=== PATIENT | male | born 1950 | race Caucasian/White ===

== ENCOUNTER → 2017-11-27 | Outpatient (CLI) | payer MEDICARE, BC ==
[~2017-11-27] MED LIST: ASPIRIN; ASPIRIN EC81 MG PO; ATORVASTATIN CA20 MG PO; BRILINTA90 MG PO; BUPROPION; BUPROPION HCL100 M1 PO; BUTALBITAL; BUTALBITAL-ASA1 EACH PO; BYSTOLIC; BYSTOLIC10 MG PO; BYSTOLIC5 MG PO; CARISOPRODOL; CARISOPRODOL350 MG PO; HYDROCHLOROTH12.5 M1 PO; HYDROCHLOROTHIAZIDE; KETOPROFEN; KETOPROFEN50 MG PO; LORAZEPAM; LORAZEPAM1 MG PO; MAXALT MLT; MAXALT MLT10 MG SL; NITROLINGUAL; NITROLINGUAL4.9 GM SL; OMEPRAZOLE40 MG PO; PANTOPRAZOLE; PLAVIX; POT CITRATE; POTASSIUM CITR10 MEQ PO; RANEXA500 MG PO; TAMSULOSIN; TAMSULOSIN HCL0.4 MG PO; TEMAZEPAM; TRILIPIX; TRILIPIX135 MG PO; VYTORIN; WELCHOL; WELCHOL625 MG PO; ZETIA10 MG PO; ZYRTEC10 M3 PO
--- NOTE | 2017-11-27 10:38 | Diagnostic Imaging Report ---
PROCEDURE:CHEST 2 VIEWS TECHNIQUE:PA and lateral chest INDICATION:Malignant neoplasm of the kidney COMPARISON:Patients [facility], , CHEST 2 VIEWS, 07/23/2017, 14:30. FINDINGS: The lungs are clear and slightly inflated. Normal heart size, mediastinal contour, and pulmonary vasculature. Intact skeleton. CONCLUSION: Normal study. Dictated by: Aakash Randall M.D. on 11/27/2017 at 10:39 Electronically approved by: Aakash Randall M.D. on 11/27/2017 at 10:39
--- NOTE | 2017-11-27 11:04 | Diagnostic Imaging Report ---
PROCEDURE:US RETROPERITONEAL ( KIDNEY ). COMPARISON:Patients [facility], , US RETROPERITONEAL ( KIDNEY )., 01/24/2017, 14:22. Patients [facility], , US RETROPERITONEAL ( KIDNEY )., 07/23/2017, 14:57. INDICATIONS:Malignant Neoplasm Of Unspecified Kidney TECHNIQUE: Grayscale and color Doppler ultrasound of kidneys FINDINGS: Right: 11.8 x 6.6 x 6.2 cm. Cortical thickness 2.2 cm Left: 12.5 x 7.1 x 5.9 cm. Cortical thickness 1.8 cm Postoperative sequela of right partial nephrectomy. Stable complex parapelvic cyst measuring 1.5 x 1.3 x 1.3 cm. Normal echogenicity. 0.7 x 0.6 x 0.9 cm left anechoic exophytic cyst, new relative to July 2017. Survey views of the urinary bladder are normal. Patent ureters with normal ureteral jets. Prostate volume: 25 mL (3.6 x 3 x 4.5 cm). CONCLUSION: 1. Stable postoperative sequela of right partial nephrectomy. 2. Stable complex right parapelvic cyst. 3. Interval development of a small simple-appearing exophytic left renal cyst. Dictated by: Aakash Randall M.D. on 11/27/2017 at 11:05 Electronically approved by: Aakash Randall M.D. on 11/27/2017 at 11:05
== END ==
LOC: US 08:58
PROVIDERS: ATTEND Urology
DX: C64.9 Malignant neoplasm of unspecified kidney, except renal pelvis (principal)
CPT/HCPCS: 71046; 76770

== ENCOUNTER → 2018-07-03 | Outpatient (CLI) | payer MEDICARE, BC ==
--- NOTE | 2018-07-03 12:53 | Diagnostic Imaging Report ---
EXAMINATION: PA and lateral views of the chest. COMPARISON: 11/27/2017 CLINICAL HISTORY: Malignant neoplasm of kidney DISCUSSION: Lungs are well-inflated. No focal airspace consolidation, pleural effusion, or pneumothorax. No suspicious mass lesion. Stable cardiomediastinal contour with tortuosity of the thoracic aorta. No acute osseous abnormality. Mild degenerative disc changes of the thoracic spine. Chronic mild anterior compression deformity of T12, unchanged. Multiple surgical clips project over the vertebral column on the lateral radiograph. IMPRESSION: No acute cardiopulmonary abnormalities. Signed by: Dr. Edgar Garcia M.D. on 07/03/2018 12:50 PM
--- NOTE | 2018-07-03 15:02 | Diagnostic Imaging Report ---
RENAL ULTRASOUND TECHNIQUE: Ultrasound evaluation of the KIDNEYS. Color Doppler evaluation was utilized to supplement the evaluation. HISTORY: Malignant neoplasm of kidney COMPARISON: Renal ultrasound November 27, 2017 DISCUSSION: RIGHT KIDNEY: The right kidney measures 11 cm in length. The cortex measures 2 cm in thickness. Parenchyma is within normal limits. No hydronephrosis or solid mass lesions. LEFT KIDNEY: The left kidney measures 12 cm in length. The cortex measures 2 cm in thickness. Parenchyma is within normal limits. No hydronephrosis or solid mass lesions. BLADDER: Unremarkable IMPRESSION: No sonographic abnormality. Signed by: Dr. Kadne Samaniego D.O., M.M.M. on 07/03/2018 2:58 PM
== END ==
LOC: US 11:41
PROVIDERS: ATTEND Urology
DX: C64.1 Malignant neoplasm of right kidney, except renal pelvis (principal)
CPT/HCPCS: 71046; 76770

== ENCOUNTER → 2018-12-02 | Outpatient (CLI) | payer MEDICARE, BC ==
--- NOTE | 2018-12-02 13:20 | Diagnostic Imaging Report ---
EXAMINATION: CHEST 2 VIEWS INDICATION: Malignant renal neoplasm. COMPARISON: Chest radiograph 07/03/2018. FINDINGS: TUBES and LINES: None. LUNGS: Lungs are well inflated. There is no evidence of pneumonia or pulmonary edema. PLEURA: No pleural effusion or pneumothorax. HEART AND MEDIASTINUM: The cardiomediastinal silhouette is unremarkable. BONES AND SOFT TISSUES: There is a mild wedge deformity of a lower thoracic vertebral body, similar in appearance to prior radiograph on 07/03/2018. UPPER ABDOMEN: No free air under the diaphragm. There are surgical clips in the upper posterior abdomen. IMPRESSION: No acute radiographic abnormality. Signed by: Dr. Martha Benito MD on 12/02/2018 1:16 PM
--- NOTE | 2018-12-02 13:25 | Diagnostic Imaging Report ---
RENAL ULTRASOUND TECHNIQUE: Ultrasound evaluation of the KIDNEYS. Color Doppler evaluation was utilized to supplement the evaluation. HISTORY: Malignant neoplasm of kidney COMPARISON: Renal ultrasound 07/03/2018. DISCUSSION: RIGHT KIDNEY: The right kidney measures 11.3 cm in length. The cortex measures 1.3 cm in thickness. Parenchyma is within normal limits. No hydronephrosis or solid mass lesions. LEFT KIDNEY: The left kidney measures 13.8 cm in length. The cortex measures 1.6 cm in thickness. Parenchyma is within normal limits. No hydronephrosis or solid mass lesions. There is a 1.2 cm simple appearing lower pole anechoic cyst without vascular flow, previously measuring up to 0.9 cm. BLADDER: Unremarkable in appearance. Bilateral ureteral jets are seen. IMPRESSION: No sonographic evidence of solid renal mass. Slight interval increase in size of simple appearing 1.2 cm left lower pole renal cyst, previously 0.9 cm. Signed by: Dr. Martha Benito MD on 12/02/2018 1:22 PM
--- NOTE | 2018-12-02 14:35 | Diagnostic Imaging Report ---
Exam: KUB-2 views Clinical History: Renal malignancy. Comparison: None. Findings: There is a nonobstructive bowel gas pattern. No evidence of urinary calcifications. There are calcified phleboliths in the pelvis. No acute osseous abnormality. There are surgical clips in the right upper abdomen. Impression: No acute radiographic abnormality. Signed by: Dr. Martha Benito MD on 12/02/2018 2:32 PM
== END ==
LOC: US 11:25
PROVIDERS: ATTEND Urology
DX: C64.1 Malignant neoplasm of right kidney, except renal pelvis (principal); N20.0 Calculus of kidney; N28.1 Cyst of kidney, acquired
CPT/HCPCS: 71046; 74018; 76770

== ENCOUNTER → 2019-06-12 | Outpatient (CLI) | payer MEDICARE, BC ==
--- NOTE | 2019-06-12 09:09 | Diagnostic Imaging Report ---
Chest, 2 views, 06/12/2019. History: Malignant neoplasm of the kidney. Comparison: 12/02/2018. Findings: The cardiomediastinal silhouette and pulmonary vasculature are within normal limits. There is minimal left apical pleural thickening. The lungs are clear without evidence of consolidation or pleural effusion. Degenerative changes are present within the thoracic spine. There are no acute osseous or soft tissue abnormalities. Impression: No acute cardiopulmonary abnormality. Signed by: Alexis Zuniga on 06/12/2019 9:06 AM
--- NOTE | 2019-06-12 09:11 | Diagnostic Imaging Report ---
Abdomen, 1 view. History: History of renal cancer. Comparison: 12/02/2018. Findings: Multiple surgical clips are present in the right abdomen consistent with prior right nephrectomy. Air is scattered throughout nondilated small and large bowel. Calcified fluids are present within the pelvis bilaterally. Degenerative changes are noted throughout the lumbar spine. IMPRESSION: Non-specific bowel gas pattern. Signed by: Alexis Zuniga on 06/12/2019 9:07 AM
--- NOTE | 2019-06-12 09:40 | Diagnostic Imaging Report ---
Renal ultrasound, 06/12/2019. History: Renal calculus. Comparison: 12/02/2018. Discussion: Transverse and longitudinal images of the kidneys were obtained demonstrating normal renal sizes and echogenicities. There is no evidence of hydronephrosis, mass, or renal calculus. An oval anechoic structure is present in the lower pole of the left kidney measuring 1.2 x 1.3 x 1.2 cm. The right kidney measures 11.7 cm and the left kidney measures 12.7 cm in length. Renal cortex measures 2.5 and 1.8 cm respectively. The urinary bladder is unremarkable. Bilateral ureteral jets are identified. Bladder volume measures 308 mL. There is no evidence of free fluid. IMPRESSION: Stable left renal cyst. Otherwise unremarkable renal ultrasound. Signed by: Alexis Zuniga on 06/12/2019 9:36 AM
== END ==
LOC: US 08:28
PROVIDERS: ATTEND Urology
DX: C64.1 Malignant neoplasm of right kidney, except renal pelvis (principal); N20.0 Calculus of kidney
CPT/HCPCS: 71046; 74018; 76770

== ENCOUNTER 2019-10-31 09:57 | Outpatient (RCR) | payer MEDICARE, BC | END 2019-11-01 | LOC: PT 09:57 | PROVIDERS: ATTEND Specialist | DX: M47.896 Other spondylosis, lumbar region (principal) | CPT/HCPCS: 97139 ==

== ENCOUNTER 2020-03-31 21:56 | Emergency (ER) | payer MEDICARE, BC ==
[~2020-03-31] VITALS: Ht 182.9 cm; Wt 75.7 kg
[2020-03-31 22:26] LABS: BASOPHILS % 0.6 % (0.0-1.0); EOSINOPHILS # (AUTO) 0.1 (0.0-0.4); EOSINOPHILS % 1.5 % (0.0-6.0); HEMATOCRIT 36.6 % (38.2-49.6); HEMOGLOBIN 12.9 g/dL (14.0-18.0); LYMPHOCYTES # (AUTO) 2.5 (1.0-3.2); LYMPHOCYTES % 38.2 % (18.0-39.1); MEAN CORPUSCULAR HEMOGLOBIN 33.3 pg (28-32); MEAN CORPUSCULAR HGB CONC 35.2 g/dL (31-35); MEAN CORPUSCULAR VOLUME 94.6 fL (81-99); MONOCYTES # (AUTO) 0.8 (0.2-0.8); NEUTROPHILS # (AUTO) 3.1 (2.1-6.9); NEUTROPHILS % 47.2 % (38.7-80.0); PLATELET COUNT 188 x10e3/uL (140-360); RED BLOOD COUNT 3.87 x10e6/uL (4.3-5.7); RED CELL DISTRIBUTION WIDTH 12.5 % (11.7-14.4)
[2020-03-31 22:36] LABS: BILIRUBIN,URINE NEGATIVE (NEGATIVE); CLARITY,URINE CLEAR (CLEAR); COLOR,URINE YELLOW (YELLOW); KETONES,URINE NEGATIVE (NEGATIVE); LEUKOCYTE ESTERASE ,URINE NEGATIVE (NEGATIVE); NITRITE,URINE NEGATIVE (NEGATIVE); PROTEIN,URINE DIPSTICK NEGATIVE (NEGATIVE); URINE UROBILINOGEN 0.2 mg/dL (0.2 - 1)
[2020-03-31 22:39] LABS: INR 0.98; PROTHROMBIN TIME 13.5 seconds (11.9-14.5)
--- NOTE | 2020-03-31 22:39 | Emergency Department Note ---
History of Present Illnes History of Present Illness Chief Complaint: General Medicine Complaints History of Present Illness This is a 69 year old male presents to ED with report of near syncope episode at home at approx 2030; pt reports struck head on floor, denies LOC, no obvious trauma noted; pt reports pain to right side of neck and head; hand balloon sander equal and strong, perrla, speech clear, smile symmetrical, gait steady .He states before he fell he became dizzy, denies sob, chest pain Historian: Patient, Family Member Arrival Mode: Car Onset (how long ago): hour(s) (2) Location: RIGHT HEAD Quality: NEAR SYNCOPE, HIT HEAD ON FLOOR, DENIES LOC Radiation: Reports non-radiation Severity: moderate Onset quality: sudden Duration (how long): hour(s) (2) Timing of current episode: unable to specify Progression: resolved Chronicity: new Context: Reports trauma/injury ( ABOVE); Denies recent illness, Denies recent surgery Relieving factors: none Exacerbating factors: none Associated symptoms: Reports denies other symptoms Treatments prior to arrival: none Past Medical/Family History Physician Review I have reviewed the patient's past medical and family history. Any updates have been documented here. Past Medical History Recent Fever: No Clinical Suspicion of Infectio: No New/Unexplained Change in Ment: No Past Medical History: Hypertension, Cancer, Migraines, Hyperlipedemia, Chronic Back Pain Other Medical History: HIGH CHOLESTEROL DIVERTICULITIS CHRONIC BACK PAIN KIDNEY CANCER IN REMISSION Past Surgical History: PCI Other Surgery: HEART CATH STENT X2 RIGHT KIDNEY PARTIALLY REMOVED DUE TO CANCER Social History Smoking Cessation: Current every day smoker Counseling Performed: Yes Alcohol Use: None Any Illegal Drug Use: Yes (PT REPORTS MARIJUANA ) Physically hurt or threatened: No Other Last Tetanus: ABOUT 3-4 YEARS AGO Any Pre-Existing Lines (PICC,: No Review of Systems Review of Systems Constitutional: Reports no symptoms EENTM: Reports as per HPI Cardiovascular: Reports no symptoms Respiratory: Reports no symptoms Gastrointestinal: Reports no symptoms Genitourinary: Reports no symptoms Musculoskeletal: Reports no symptoms Integumentary: Reports no symptoms Neurological: Reports as per HPI Psychological: Reports no symptoms Endocrine: Reports no symptoms Hematological/Lymphatic: Reports no symptoms Physical Exam Related Data Allergies: Coded Allergies: No Known Allergies (Unverified , 11/25/13) Triage Vital Signs Vital Signs Date Time Temp Pulse Resp B/P (MAP) Pulse Ox O2 Delivery O2 Flow Rate FiO2 03/31/20 22:05 98.6 52 17 152/75 99 Room Air Vital signs reviewed: Yes Physical Exam CONSTITUTIONAL Constitutional: Present well-developed, Present well-nourished; Absent distressed HENT HENT: Present normocephalic, Present oropharynx clear/moist, Present nose normal, Present other (small contusion right temporal area) HENT L/R: Present left ext ear normal, Present right ext ear normal EYES Eyes: Reports PERRL, Reports conjunctivae normal NECK Neck: Present ROM normal PULMONARY Pulmonary: Present effort normal, Present breath sounds normal CARDIOVASCULAR Cardiovascular: Present regular rhythm, Present heart sounds normal, Present capillary refill normal, Present bradycardia (53) GASTROINTESTINAL Abdominal: Present soft, Present nontender, Present bowel sounds normal GENITOURINARY Genitourinary: Present exam deferred SKIN Skin: Present warm, Present dry MUSCULOSKELETAL Musculoskeletal: Present ROM normal NEUROLOGICAL Neurological: Present alert, Present oriented x 3, Present no gross motor or sensory deficits PSYCHOLOGICAL Psychological: Present mood/affect normal, Present judgement normal Results Laboratory Result Diagram: 03/31/20 2215 Laboratory Laboratory Tests Test 03/31/20 22:15 03/31/20 22:00 White Blood Count 6.49 x10e3/uL (4.8-10.8) Red Blood Count 3.87 x10e6/uL (4.3-5.7) Hemoglobin 12.9 g/dL (14.0-18.0) Hematocrit 36.6 % (38.2-49.6) Mean Corpuscular Volume 94.6 fL (81-99) Mean Corpuscular Hemoglobin 33.3 pg (28-32) Mean Corpuscular Hemoglobin Concent 35.2 g/dL (31-35) Red Cell Distribution Width 12.5 % (11.7-14.4) Platelet Count 188 x10e3/uL (140-360) Neutrophils (%) (Auto) 47.2 % (38.7-80.0) Lymphocytes (%) (Auto) 38.2 % (18.0-39.1) Monocytes (%) (Auto) 12.0 % (4.4-11.3) Eosinophils (%) (Auto) 1.5 % (0.0-6.0) Basophils (%) (Auto) 0.6 % (0.0-1.0) Neutrophils # (Auto) 3.1 (2.1-6.9) Lymphocytes # (Auto) 2.5 (1.0-3.2) Monocytes # (Auto) 0.8 (0.2-0.8) Eosinophils # (Auto) 0.1 (0.0-0.4) Basophils # (Auto) 0.0 (0.0-0.1) Absolute Immature Granulocyte (auto 0.03 x10e3/uL (0-0.1) Prothrombin Time 13.5 seconds (11.9-14.5) Prothromb Time International Ratio 0.98 Activated Partial Thromboplast Time 28.8 seconds (23.8-35.5) Sodium Level 138 mmol/L (136-145) Potassium Level 3.6 mmol/L (3.5-5.1) Chloride Level 102 mmol/L (98-107) Carbon Dioxide Level 26 mmol/L (22-29) Anion Gap 13.6 mmol/L (8-16) Blood Urea Nitrogen 15 mg/dL (7-26) Creatinine 0.91 mg/dL (0.72-1.25) Estimat Glomerular Filtration Rate > 60 ML/MIN (60-) BUN/Creatinine Ratio 16 (6-25) Glucose Level 96 mg/dL (74-118) Calcium Level 9.0 mg/dL (8.4-10.2) Total Bilirubin 0.4 mg/dL (0.2-1.2) Aspartate Amino Transf (AST/SGOT) 38 IU/L (5-34) Alanine Aminotransferase (ALT/SGPT) 57 IU/L (0-55) Alkaline Phosphatase 67 IU/L (40-150) Creatine Kinase 226 IU/L (30-200) Creatine Kinase MB 3.70 ng/mL (0-5.0) Troponin I 0.008 ng/mL (0-0.300) Total Protein 7.1 g/dL (6.5-8.1) Albumin 3.9 g/dL (3.5-5.0) Globulin 3.2 g/dL (2.3-3.5) Albumin/Globulin Ratio 1.2 (0.8-2.0) Urine Color Yellow (YELLOW) Urine Clarity Clear (CLEAR) Urine pH 7 (5 - 7) Urine Specific [place] 1.015 (1.010-1.025) Urine Protein Negative (NEGATIVE) Urine Glucose (UA) Negative (NEGATIVE) Urine Ketones Negative (NEGATIVE) Urine Blood Negative (NEGATIVE) Urine Nitrite Negative (NEGATIVE) Urine Bilirubin Negative (NEGATIVE) Urine Urobilinogen 0.2 mg/dL (0.2 - 1) Urine Leukocyte Esterase Negative (NEGATIVE) Urine RBC None /HPF (0-5) Urine WBC 0-5 /HPF (0-5) Urine Epithelial Cells Rare /LPF (NONE) Urine Bacteria Few /HPF (NONE) Laboratory Tests Test 03/31/20 22:15 03/31/20 22:00 White Blood Count 6.49 x10e3/uL (4.8-10.8) Red Blood Count 3.87 x10e6/uL (4.3-5.7) Hemoglobin 12.9 g/dL (14.0-18.0) Hematocrit 36.6 % (38.2-49.6) Mean Corpuscular Volume 94.6 fL (81-99) Mean Corpuscular Hemoglobin 33.3 pg (28-32) Mean Corpuscular Hemoglobin Concent 35.2 g/dL (31-35) Red Cell Distribution Width 12.5 % (11.7-14.4) Platelet Count 188 x10e3/uL (140-360) Neutrophils (%) (Auto) 47.2 % (38.7-80.0) Lymphocytes (%) (Auto) 38.2 % (18.0-39.1) Monocytes (%) (Auto) 12.0 % (4.4-11.3) Eosinophils (%) (Auto) 1.5 % (0.0-6.0) Basophils (%) (Auto) 0.6 % (0.0-1.0) Neutrophils # (Auto) 3.1 (2.1-6.9) Lymphocytes # (Auto) 2.5 (1.0-3.2) Monocytes # (Auto) 0.8 (0.2-0.8) Eosinophils # (Auto) 0.1 (0.0-0.4) Basophils # (Auto) 0.0 (0.0-0.1) Absolute Immature Granulocyte (auto 0.03 x10e3/uL (0-0.1) Lab results reviewed: Yes Imaging Imaging results reviewed: Yes Impressions Procedure: [id number] DX/CHEST SINGLE (PORTABLE) Exam Date: 03/31/20 Exam Time: 2305 REPORT STATUS: Signed EXAMINATION: CHEST SINGLE (PORTABLE) INDICATION: Near syncope COMPARISON: Chest x-ray 06/12/2019 FINDINGS: TUBES and LINES: None. LUNGS: Normal lung volumes. Lungs are clear. No consolidations. PLEURA: No pleural effusion or pneumothorax. HEART AND MEDIASTINUM: Aortic calcifications. Mild cardiomegaly with left coronary stent. BONES AND SOFT TISSUES: No acute osseous lesion. Soft tissues are unremarkable. Degenerative changes. UPPER ABDOMEN: No free air under the diaphragm. IMPRESSION: Mild cardiomegaly with left coronary stent. Signed by: Shaw Ruffin DO on 03/31/2020 11:32 PM Dictated By: SHAW RUFFIN DO 31 Transcribed By: AYB on 03/31/202331 COPY TO: MARTI CHENG MD~ Procedure: [id number] CT/CT CERVICAL SPINE WO Exam Date: 03/31/20 Exam Time: 2255 REPORT STATUS: Signed EXAMINATION: CT of the cervical spine HISTORY: Near syncope, trauma, hit the head, possible stroke COMPARISON: None available TECHNIQUE: Multidetector helical axial images were obtained without contrast from the foramen magnum to T1. The images were reconstructed using bone and soft tissue algorithms and were viewed in axial, sagittal and coronal planes. Dose modulation, iterative reconstruction, and/or weight based adjustment of the mA/kV was utilized to reduce the radiation dose to as low as reasonably achievable. FINDINGS: Alignment: Normal alignment and lordosis. Subtle left-sided curvature. Soft tissues: Normal Vertebrae: Normal height and density. No acute fracture, infection or neoplasm Degenerative changes: C1-C2: Normal C2-C3: Normal C3-C4: Asymmetric right disc osteophyte complex formation, uncovertebral and facet arthrosis. Severe right and mild left foraminal stenoses. C4-C5: Facet arthrosis mainly on the right, no stenoses. C5-C6: Asymmetric right disc osteophyte complex formation and uncovertebral and facet arthrosis. Moderate right foraminal narrowing. C6-C7: Mild facet arthrosis without stenoses. C7-T1: Normal IMPRESSION: 1. No acute cervical spine postraumatic abnormalities. 2. Mild chronic degenerative changes are available. Note: Acute postraumatic spinal cord, vascular or ligamentous injuries cannot adequately be assessed by CT. Signed by: Dr. Alonso Mckeon M.D. on 03/31/2020 11:19 PM Dictated By: ALONSO MCKEON MD 18 Transcribed By: ABY on 03/31/202318 COPY TO: MARTI CHENG MD~ EXAMINATION: Head CT HISTORY: Near syncope, trauma, hit the head, possible stroke COMPARISON: None available TECHNIQUE: Helical axial images of the head were obtained. Reformatted coronal and sagittal images from the axial data. Dose modulation, iterative reconstruction, and/or weight based adjustment of the mA/kV was utilized to reduce the radiation dose to as low as reasonably achievable. Image quality: Motion/streaking artifact limits the evaluation of the skull base and posterior cranial fossa. FINDINGS: Parenchyma: 1. Focal hypodensity in the right anterior/superior insula involving the great and white matter is worrisome for acute ischemic insult, no definite associated hemorrhagic component or significant mass effect. 2. A few scattered pulmonary densities, most likely nonspecific chronic microvascular ischemic changes. 3. No mass or hemorrhage. No CT evidence of acute territorial vascular insult. Extra-axial spaces:No abnormal density. No extra-axial fluid collections Brain volume: Normal for age. Ventricles: No hydrocephalus or displacement. Arteries: No density suggestive of thrombus. Dural sinuses: No abnormal density. Foramen magnum: No mass, Chiari malformation, or basilar invagination. Sella: No obvious mass. Paranasal/mastoid sinuses: Imaged portions unremarkable. Skull/Scalp: No lytic or blastic lesions. No fractures. IMPRESSION: Small hypodensity in the right anterior/superior insular likely corresponds to acute ischemic infarct. Signed by: Dr. Alonso Mckeon M.D. on 03/31/2020 11:30 PM Dictated By: ALONSO MCKEON MD 29 Transcribed By: ABY on 03/31/202329 COPY TO: MARTI CHENG MD~ Procedures 12 Lead ECG Interpretation ECG Interpretation : ECG: ECG 1 [employer] Manager: Interpreted by ED physician Date: Mar 31, 2020 Time: 22:13 Rhythm: sinus bradycardia Rate: bradycardia BPM: 53 QRS axis: normal ST segments normal: Yes T waves normal: Yes Q waves: V1 Clinical Impression: abnormal ECG Clinical Decision Tools NIH Stroke Scale Interval: baselline NIH Stroke Score: NIH Stroke Score Response (Comments) Value Level of Consciousness Alert, Keenly Responsive 0 Level of Consciousness Questions Answers Both Correctly 0 Level of Consciousness Commands Performs Both Tasks 0 Lateral Gaze Paresis Normal 0 Visual Field Loss No Visual Loss 0 Facial Palsy Normal Symmetrical Move 0 Motor Left Arm No Drift, Arm Stays 45/90 0 Motor Right Arm No Drift, Arm Stays 45/90 0 Motor Left Leg No Drift, Arm Stays 45/90 0 Motor Right Leg No Drift, Arm Stays 45/90 0 Limb Ataxia Absent 0 Sensory Loss Normal 0 Language Aphasia No Aphasia, Normal 0 Dysarthria Normal 0 Extinction and Inattention No Abnormality 0 Total 0 Assessment & Plan Medical Decision Making MDM pt with near syncope episode resulting in hitting his head on floor cbc, cmp, ekg, cxr, ct brain, ct c spine , cardiac enzymes, ua ordered to eval for myocardial infarction, arrythmia, intracranial injury/abnormality, fractures, electrolyte abnormality, intrathoracic abnormality pt will require transfer to another hospital as no neurology net application support specialist at this facility. i spoke with dr serrano( neurology) at [facility], he will see pt but wants pt admitted to hospitalist, awaiting to talk to hospitalist at this time. 4104/01/[address] jones hospitalist at [facility], she accepts pt for transfer Reassessment Reassessment time: 23:40 Reassessment nih stroke scale score still 0 at this time. Assessment & Plan Final Impression: (1) Ischemic stroke (2) Near syncope (3) Head contusion Depart Disposition: TRANS TO OTHER [facility] Last Vital Signs Date Time Temp Pulse Resp B/P (MAP) Pulse Ox O2 Delivery O2 Flow Rate FiO2 03/31/20 22:05 98.6 52 17 152/75 99 Room Air Home Meds Reported Medications Nebivolol Hcl (BYSTOLIC) 10 Mg Tablet, 5 MG PO DAILY, TAB 05/05/16 Cetirizine Hcl (ZYRTEC) 10 Mg Capsule, 10 MG PO DAILY 11/25/13 Ezetimibe (ZETIA) 10 Mg Tablet, 10 MG PO DAILY 11/25/13 Ticagrelor (BRILINTA) 90 Mg Tablet, 90 MG PO BID 11/25/13 Atorvastatin Calcium (ATORVASTATIN CALCIUM) 20 Mg Tablet, 20 MG PO DAILY 11/25/13 Ranolazine (RANEXA) 500 Mg Tabsr, 1000 MG PO BID 11/25/13 Butalbital/Aspirin/Caffeine (DFRCLLUDRM-RBA-KFUMCRFQ CAP) 1 Each Capsule, 30 MG PO TID PRN HEADACHE PRN for HEADACHE 11/25/13 Rizatriptan Benzoate (MAXALT OIL WELL ENGINEER) 10 Mg Tab.rapdis, 10 MG SL PRN DAILY MIGRAINE 11/25/13 Fenofibric Acid (Choline) (TRILIPIX) 135 Mg Capsule.dr, 135 MG PO DAILY 11/25/13 Carisoprodol (CARISOPRODOL) 350 Mg Tablet, 350 MG PO TID PRN 11/25/13 Tamsulosin Hcl (TAMSULOSIN HCL) 0.4 Mg Cap.er.24h, 0.4 MG PO DAILY 30 minutes after meal 11/25/13 Colesevelam Hcl (WELCHOL) 625 Mg Tablet, 625 MG PO BID 3 tabs 11/25/13 Nitroglycerin (NITROLINGUAL) 4.9 Gm [place], 1 SPRAY SL PRN X3 11/25/13 Hydrochlorothiazide (HYDROCHLOROTHIAZIDE) 12.5 Mg Capsule, 12.5 MG PO DAILY 11/25/13 Omeprazole (OMEPRAZOLE) 40 Mg Capsule.dr, 40 MG PO DAILY PRN 11/25/13 Potassium Citrate (POTASSIUM CITRATE) 10 Meq Tablet.er, 10 MEQ PO TID 11/25/13 Aspirin (ASPIRIN EC) 81 Mg Tablet.dr, 81 MG PO DAILY 11/25/13 Lorazepam (LORAZEPAM) 1 Mg Tablet, 1-2 MG PO BID PRN for ANXIETY 11/25/13 Bupropion Hcl (BUPROPION HCL SR) 100 Mg Tablet.er, 300 MG PO DAILY 11/25/13 MARTI CHENG MD Mar 31, 2020 22:39
[2020-03-31 22:40] LABS: PARTIAL THROMBOPLASTIN TIME 28.8 seconds (23.8-35.5)
[2020-03-31 22:43] LABS: BACTERIA,URINE FEW /HPF; EPITHELIAL CELLS,URINE RARE /LPF; WBC,URINE (MAN) 0-5 /HPF (0-5)
[2020-03-31 22:50] LABS: ALANINE AMINOTRANSFERASE 57 IU/L (0-55); ALBUMIN 3.9 g/dL (3.5-5.0); ALBUMIN/GLOBULIN RATIO 1.2 (0.8-2.0); ALKALINE PHOSPHATASE 67 IU/L (40-150); ANION GAP 13.6 mmol/L (8-16); BLOOD UREA NITROGEN 15 mg/dL (7-26); BUN/CREATININE RATIO 16 (6-25); CARBON DIOXIDE 26 mmol/L (22-29); CHLORIDE 102 mmol/L (98-107); CREATINE KINASE 226 IU/L (30-200); CREATININE, SERUM 0.91 mg/dL (0.72-1.25); EST GLOMERULAR FILTRATION RATE > 60 ML/MIN (60-); GLUCOSE 96 mg/dL (74-118); POTASSIUM 3.6 mmol/L (3.5-5.1); SODIUM 138 mmol/L (136-145)
--- NOTE | 2020-03-31 23:23 | Diagnostic Imaging Report ---
EXAMINATION: CT of the cervical spine HISTORY: Near syncope, trauma, hit the head, possible stroke COMPARISON: None available TECHNIQUE: Multidetector helical axial images were obtained without contrast from the foramen magnum to T1. The images were reconstructed using bone and soft tissue algorithms and were viewed in axial, sagittal and coronal planes. Dose modulation, iterative reconstruction, and/or weight based adjustment of the mA/kV was utilized to reduce the radiation dose to as low as reasonably achievable. FINDINGS: Alignment: Normal alignment and lordosis. Subtle left-sided curvature. Soft tissues: Normal Vertebrae: Normal height and density. No acute fracture, infection or neoplasm Degenerative changes: C1-C2: Normal C2-C3: Normal C3-C4: Asymmetric right disc osteophyte complex formation, uncovertebral and facet arthrosis. Severe right and mild left foraminal stenoses. C4-C5: Facet arthrosis mainly on the right, no stenoses. C5-C6: Asymmetric right disc osteophyte complex formation and uncovertebral and facet arthrosis. Moderate right foraminal narrowing. C6-C7: Mild facet arthrosis without stenoses. C7-T1: Normal IMPRESSION: 1. No acute cervical spine postraumatic abnormalities. 2. Mild chronic degenerative changes are available. Note: Acute postraumatic spinal cord, vascular or ligamentous injuries cannot adequately be assessed by CT. Signed by: Dr. Samira Mckeon M.D. on 03/31/2020 11:19 PM
--- NOTE | 2020-03-31 23:34 | Diagnostic Imaging Report ---
EXAMINATION: Head CT HISTORY: Near syncope, trauma, hit the head, possible stroke COMPARISON: None available TECHNIQUE: Helical axial images of the head were obtained. Reformatted coronal and sagittal images from the axial data. Dose modulation, iterative reconstruction, and/or weight based adjustment of the mA/kV was utilized to reduce the radiation dose to as low as reasonably achievable. Image quality: Motion/streaking artifact limits the evaluation of the skull base and posterior cranial fossa. FINDINGS: Parenchyma: 1. Focal hypodensity in the right anterior/superior insula involving the great and white matter is worrisome for acute ischemic insult, no definite associated hemorrhagic component or significant mass effect. 2. A few scattered pulmonary densities, most likely nonspecific chronic microvascular ischemic changes. 3. No mass or hemorrhage. No CT evidence of acute territorial vascular insult. Extra-axial spaces:No abnormal density. No extra-axial fluid collections Brain volume: Normal for age. Ventricles: No hydrocephalus or displacement. Arteries: No density suggestive of thrombus. Dural sinuses: No abnormal density. Foramen magnum: No mass, Chiari malformation, or basilar invagination. Sella: No obvious mass. Paranasal/mastoid sinuses: Imaged portions unremarkable. Skull/Scalp: No lytic or blastic lesions. No fractures. IMPRESSION: Small hypodensity in the right anterior/superior insular likely corresponds to acute ischemic infarct. Signed by: Dr. Samira Mckeon M.D. on 03/31/2020 11:30 PM
--- NOTE | 2020-03-31 23:36 | Diagnostic Imaging Report ---
EXAMINATION: CHEST SINGLE (PORTABLE) INDICATION: Near syncope COMPARISON: Chest x-ray 06/12/2019 FINDINGS: TUBES and LINES: None. LUNGS: Normal lung volumes. Lungs are clear. No consolidations. PLEURA: No pleural effusion or pneumothorax. HEART AND MEDIASTINUM: Aortic calcifications. Mild cardiomegaly with left coronary stent. BONES AND SOFT TISSUES: No acute osseous lesion. Soft tissues are unremarkable. Degenerative changes. UPPER ABDOMEN: No free air under the diaphragm. IMPRESSION: Mild cardiomegaly with left coronary stent. Signed by: Shaw Ruffin DO on 03/31/2020 11:32 PM
[2020-04-01 03:46] VITALS: BP 135/67
--- OUTSIDE RECORDS SUMMARY | 2020-04-02 20:25 | XMS REPORT | Continuity of Care Document ---
Author Author [facility] t Organization [facility] Address [address] [place] [address] Phone Unavailable Care Team Providers Care Product Examiner Name Role Phone MD RAMO DUPONT MD PCP Darin Elkins MD Attphys Beatrice Crandall MD, Grace Roy Attphys [phone] Darin ELKINS Attphys Unavailable [place] CHENG Attphys Unavailable MANISH WU Attphys Unavailable RAMO DUPONT Attphys Unavailable Darin ELKINS Admphys Unavailable Payers Payer Name Policy Type Policy Number Effective Date Expiration Date Teresa sol MEDICAREMEDICARE A BxxxxxxxxxxxMedicare xxxxxxxxxxx [facility]/PPO/EP [id number], [place] [address] xxxxxxxxx [facility] Medicare A & B [id number] 2008 00:00:00 [facility] [employer] [id number] 1998 00:00:0 0 [facility] Problems Condition Name Condition Details Condition Category Status Onset Date Resolution Date Last Treatment Date Treating Clinician Comments Source Postural dizziness with presyncope Postural dizziness with presy ncope Disease Active 2020-04-01 00:00:00 Teresa [facility] Syncope Syncope Disease Active 2020-04-01 00:00:00 [facility] Cellulitis of face Cellulitis of face Problem Active 2014-07-23 00:00:0 0 [facility] Ischemic cerebrovascular accident (CVA) Problem Active [facility] Pre-syncope Problem Active [facility] Contusion of head Problem Active [facility] Allergies, Adverse Reactions, Alerts Allergy Name Allergy Type Status Severity Reaction(s) Onset Date Inacti ve Date Treating Clinician Comments Source Morphine Drug Allergy Active Other (See Comments) 2016-04-28 00 :00:00 HALLUCINATED IN ICU [facility] Social History Social Habit Start Date Stop Date Quantity Comments Source Sex Assigned At [facility] Tobacco Comment 2016-04-28 00:00:00 2016-04-28 00:00:00 CIGAR SM OKER (FORMER); RARE [facility] Smoking Status Start Date Stop Date Source Former smoker 2016-09-17 00:00:00 2016-09-17 00:00:00 [facility] Medications Ordered Medication Name Filled Medication Name Start Date Stop Da te Current Medication? Ordering Clinician Indication Dosage Frequency Signature (SIG) Comments Components Source potassium chloride (KLOR-CON) 10 MEQ CR tablet 2 04:57:13 2020-04-01 00:00:00 No 10meq Q.[id number] Ta ke 10 mEq by mouth 3 (three) times daily. [facility] fenofibric acid, choline, 135 mg capsule 2020-03 04:56:50 2020-04-01 00:00:00 No 135mg QD Take 135 mg by mouth daily. [facility] carisoprodol (SOMA) 350 MG tablet 2020-04-01 04:51:27 Yes 350mg Take 350 mg by mouth 3 (three) times daily as needed for Muscle spasms . [facility] amLODIPine (NORVASC) 5 MG tablet 2020-04-01 04:51:27 Yes 5mg QD Take 5 mg by mouth daily. [facility] cholecalciferol, vitamin D3, 25 mcg (1,000 unit) capsule 2020-04-01 04:51:27 Yes 2000U QD Take 2,000 Units by mouth daily. [facility] atorvastatin (LIPITOR) 40 MG tablet 2016-04-27 11:11:08 Yes 40mg QD Take 40 mg by mouth daily. [facility] ticagrelor (BRILINTA) 90 mg Tab tablet 2016-04-27 11:11:08 Yes QD Take by mouth daily. [facility] ezetimibe (ZETIA) 10 mg tablet 2016-04-27 11:11:08 Yes 10mg QD Take 10 mg by mouth daily. [facility] nebivolol (BYSTOLIC) 5 MG tablet 2016-04-27 11:11:07 Yes 5mg QD Take 5 mg by mouth daily. [facility] aspirin 81 MG EC tablet 2016-04-27 11:11:07 Yes 81mg QD Take 81 mg by mouth daily. [facility] omeprazole (PRILOSEC) 40 MG capsule 2016-04-27 11:11:07 Yes 40mg Take 40 mg by mouth as needed. [facility] hydrochlorothiazide (MICROZIDE) 12.5 mg capsule 2016-04-27 11:11 :07 Yes 12.5mg QD Take 12.5 mg by mouth daily. [facility] nitroglycerin (NITROSTAT) 0.4 MG SL tablet 2016-04-27 11:11:[address] 0.4 mg under the tongue every 5 (f allyson) minutes as needed for Chest pain Put 1 pill under tongue every 5min as needed for chest pain.No more than 3 doses in 15min.Call 911 if pain is unrelieved 5min after 1st dose . [facility] colesevelam (WELCHOL) 625 mg tablet 2016-04-27 11:11:07 Yes 1875mg Take 1,875 mg by mouth 2 (two) times daily with breakfast and dinner. [facility] tamsulosin (FLOMAX) 0.4 mg Cp24 24 hr capsule 2016-04-27 11:11:0 7 Yes .4mg QD Take 0.4 mg by mouth daily. [facility] rizatriptan (MAXALT) 10 MG tablet 2016-04-27 11:11:07 Yes 10mg Take 10 mg by mouth once as needed for Headaches Do NOT exceed thirty (30) mg in 24 hours. . [facility] butalbital-acetaminophen 50-300 mg Tab 2016-04-27 11:11:07 Yes Take by mouth 3 (three) times daily as needed. [facility] ranolazine (RANEXA) 1,000 mg SR tablet 2016-04-27 11:11:07 Yes 1000mg Q.5D Take 1,000 mg by mouth 2 (two) times daily. [facility] LORazepam (ATIVAN) 1 MG tablet 2016-04-27 11:11:06 Yes 1mg Take 1 mg by mouth 2 (two) times daily as needed for Anxiety. [facility] Aspirin (Aspirin Ec) 81 Mg TABLET. Aspirin (Aspirin Ec) 81 Mg TAB LET. Yes 81 Daily [facility] Atorvastatin Calcium Atorvastatin Calcium Yes 20 Daily [facility] Bupropion Hcl (Bupropion Hcl Sr) 100 Mg TABLET.ER Bupr opion Hcl (Bupropion Hcl Sr) 100 Mg TABLET.ER Yes 300 Daily [facility] Butalbital/Aspirin/Caffeine (Kwubgwmgua-Xjl-Lbksochl C ap) 1 Each CAPSULE Butalbital/Aspirin/Caffeine (Sbbfejnsku-Kfe-Shhspemh Cap) 1 Each CAPSULE Yes 30 Tid Prn Headache as needed for Headache [facility] Carisoprodol Carisoprodol Yes 350 Tid Prn [facility] Cetirizine Hcl (Zyrtec) 10 Mg CAPSULE Cetirizine Hcl (Zyrtec) 10 Mg CAPSULE Yes 10 Daily [facility] Colesevelam Hcl (Welchol) 625 Mg TABLET Colesevelam Hcl (Wel chol) 625 Mg TABLET Yes [address] [facility] Ezetimibe (Zetia) 10 Mg TABLET Ezetimibe (Zetia) 10 Mg TABLET Yes 10 Daily [facility] Fenofibric Acid (Choline) (Trilipix) 135 Mg CAPSULE. Fenofibric Acid (Choline) (Trilipix) 135 Mg CAPSULE. Yes 135 Daily [facility] Hydrochlorothiazide Hydrochlorothiazide Yes 12.5 Daily [facility] Lorazepam Lorazepam Yes Twice A Day as neede d for Anxiety [facility] Nebivolol Hcl (Bystolic) 10 Mg TABLET Nebivolol Hcl (Bystolic) 10 M g TABLET Yes 5 Daily [facility] Nitroglycerin (Nitrolingual) 4.9 Gm SPRAY Nitroglyceri n (Nitrolingual) 4.9 Gm SPRAY Yes 1 Prn X3 [facility] Omeprazole Omeprazole Yes 40 Daily Prn [facility] Potassium Citrate Potassium Citrate Yes 10 Thre e Times A Day [facility] Ranolazine (Ranexa) 500 Mg TABSR Ranolazine (Ranexa) 500 Mg TABSR Yes 1000 Twice A Day [facility] Rizatriptan Benzoate ([employer]) 10 Mg TAB.RAPDIS Obey atriptan Benzoate ([employer]) 10 Mg TAB.RAPDIS Yes 10 Prn Daily Migrai ne [facility] Tamsulosin Hcl Tamsulosin Hcl Yes .4 Daily [facility] Ticagrelor (Brilinta) 90 Mg TABLET Ticagrelor (Brilinta) 90 Mg TABLET Yes 90 Twice A Day [facility] Ketoprofen Ketoprofen 2016-05-05 00:00:00 No 50 Twi ce A Day [facility] Nebivolol Hcl (Bystolic) 5 Mg TABLET Nebivolol Hcl (Bystolic) 5 Mg TABLET 2014-07-22 00:00:00 No 5 Daily [facility] Vital Signs Vital Name Observation Time Observation Value Comments Source Respiratory rate 2020-04-01 12:42:00 16 /min [facility] Oxygen saturation in Arterial blood by Pulse oximetry 04-01 12:42:00 98 /min [place] [facility] Systolic blood pressure 2020-04-01 09:11:00 147 mm[Hg] [facility] Diastolic blood pressure 2020-04-01 09:11:00 76 mm[Hg] [facility] Heart rate 2020-04-01 09:11:00 50 /min [facility] Body temperature 2020-04-01 09:00:00 36.11 Krystin [facility] Body height 2020-04-01 04:35:00 182.9 cm [facility] Body weight Measured 2020-04-01 04:35:00 83.008 kg [facility] BMI 2020-04-01 04:35:00 24.82 kg/m2 [facility] Body Temperature 2020-04-01 03:46:00 98.7 [degF] [facility] Weight 2020-03-31 22:05:00 167 [lb_av] [facility] BMI (Body Mass Index) 2020-03-31 22:05:00 22.6 kg/m2 [facility] Procedures Procedure Date / Time Performed Performing Clinician [facility] e ECG 12-LEAD 2020-04-01 10:41:17 Unknown, Hl7 Doctor [facility] ECHO W CONTRAST & DOPPLER 2020-04-01 07:49:00 Grace Garcia CH I [facility] MR BRAIN WITHOUT IV CONTRAST 2020-04-01 07:22:00 [facility] TSH/FREE T4 IF INDICATED 2020-04-01 05:59:00 [facility] VITAMIN B12 AND FOLATE 2020-04-01 05:59:00 Grace Garcia [facility] C-REACTIVE PROTEIN 2020-04-01 05:59:00 Jose, [facility] TROPONIN I 2020-04-01 05:59:00 [facility] LIPID PANEL 2020-04-01 05:50:00 Marti Davis [facility] HEMOGLOBIN A1C 2020-04-01 05:50:00 Marti Davis [facility] PROTHROMBIN TIME/INR 2020-04-01 05:50:00 Marti Davis Ch [facility] Computed tomography of brain without radiopaque contrast 2020-03 00:00:00 [facility] Computed tomography of cervical spine without contrast 2020-03-04 9 00:00:00 [facility] Ultrasound, renal 2019-06-12 00:00:00 MANISH WU [facility] X-ray of chest, two views 2019-06-12 00:00:00 MANISH WU [facility] Encounters Start Date/Time End Date/Time Encounter Type Admission Type Attendi [facility] Care Department Encounter ID Source 2020-03-31 22:16:00 2020-04-01 03:35:00 Departed Emergency Room 1 CHENGMARTI RICKETTS [facility] [id number] [facility] 2019-10-08 09:01:00 2019-11-01 22:59:00 Discharged Recurring [facility] [id number] [facility] Patients [facility] 2019-09-09 07:41:00 2019-10-03 22:59:00 Discharged Recurring [facility] [id number] [facility] - Patients [facility] 2019-06-12 08:28:00 2019-06-12 08:28:00 Registered Clinic 3 HERI ZAMORAMALIK MANISH [facility] [id number] [facility] Results Test Description Test Time Test Comments Results Result Comments Source ECG 12 lead 2020-04-01 17:43:10 Interface, E xternal Ris In 04/01/2020 5:43 PM CDTVentricular Rate 54 BPMAtrial Rate 54 BPMP-R Interval 210 msQRS Duration 116 msQ-T Interval 436 msQTC Calculation(Bazett) 413 msP [place] 65 degreesR [place] - 13 degreesT [place] 21 degreesSinus bradycardia with 1st degree A-V blockLeft ventricular hypertrophy with QRS wideningNonspecific T wave abnormalityAbnormal ECGWhen compared with ECG of 17-SEP-2016 11:10,MN interval has increasedCriteria for Septal infarct are no longer PresentNonspecific T wave abnormality now evident in Lateral leadsConfirmed by MD Sifuentes Mahboob ([id number]) on 04/01/2020 5:43:09 PM [facility] r Troponin I 2020-04-01 10:37:00 Test Item Troponin I (test code = 64734-8) <0.01 0-0.03 JESSICA (test code = JESSICA) Troponin I (TnI) levels must be interpreted in the context of the presenting symptoms and the clinical findings. Elevated TnI levels indicate myocardial damage, but are not specific for ischemic heart disease. Elevated TnI levels are seen in patients with other cardiac conditions (including myocarditis and congestive heart failure), and slight TnI elevations occur in patients with other conditions, including sepsis, renal failure, acidosis, acute neurological disease, and persistent tachyarrhythmia.Scrap Baller ID - NTP Lab Interpretation (test code = 98359-7) Normal [facility] CenterTROPONIN [id number] 10:37:00* Test Item Value Reference Range Interpretation Comments TROPONIN I (BEAKER) (test code = 397) < ng/mL 0.00-0.03 Troponin I (TnI) levels must be interpreted in the context of the presenting sym ptoms and the clinical findings. Elevated TnI levels indicate myocardial damage, but are not specific for ischemic heart disease. Elevated TnI levels are seen i n patients with other cardiac conditions (including myocarditis and congestive h eart failure), and slight TnI elevations occur in patients with other conditions , including sepsis, renal failure, acidosis, acute neurological disease, and per sistent tachyarrhythmia.Scrap Baller ID - NTPECHO W CONTRAST & [id number] 09:55:35Ejection FractionSLEH ECHO HEARTLAB MKCKESSON CPACSInterface, External Ris In - 04/01/2020 9:55 AM CDTTransthoracic Echocardiography Report (TTE) Demographics Patient Name CARLY TSANG Date of Study 04/01/2020 PASCUAL Gender Male Visit Number [id number] Race Unknown Room Number 2209 Number Date of 1950 Referring Physician Sohail Elkins MD Age 69 year(s) [employer] 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 The left ventricle is chamber size (by vol index) is mildly enlarged. Normal LV wall thickness. The following segment(s) appear hypokinetic: mid to apical septum. Estimated LVEF by qualitative assessment is mildly reduced (45-49%). Grade 1 diastolic dysfunction (impaired relaxation) .Normal LV filling pressures Avg E/e' - 9. LA size is mildly enlarged. 2. Normal right ventricle structure and function. Normal right atrium. Estimated peak systolic PA pressure is 30-35 mmHg (normal range). 3. Mild tricuspid regurgitation. Mild mitral regurgitation. 4. IV saline contrast injection was negative for a PFO (patent foramen ovale) at rest and post Valsalva. Previous Study Compared to the previous study performed in 2011, the LVEF improved. Signature Findings Technical Quality: Good visualization Left Ventricle The left ventricle is chamber size (by vol index) is mildly enlarged (male - LVED 75-89ml/m2). Normal LV wall thickness. The follow ing segment(s) appear hypokinetic: mid to apical septum . Global LV systolic function mildly reduced . Estimated L VEF by qualitative assessment is mildly reduced (45-49%) . Grade 1 diastolic dysfunction (impaired relaxation and low-normal LA pressure). Left Atrium LA size is mildly enlarged . Right Ventricle Normal right ventricle structure an d function. Right Atrium Normal right atrium. Atrial Septum IV saline contrast injection was negative for a PFO (pat ent foramen ovale) at rest and post Valsalva . Aortic Valve Mild AoV cusp thickening. Mitral Valve Mild MV leaflet thickening. Mild mitral regurgitation. Tricuspid Valve Mild tricuspid re gurgitation. Estimated peak systolic PA pressure is 30-35 mmHg (normal range) . Pulmonic Valve Normal PV structure and function by limited views and Doppler. Aor ta Aortic root size (SInus of Valsalva diameter) is normal . Pericardium No evidence of pericardial effusion . IVC/SVC/PA/PV/Pleural The estimated RA pressure by IVC dynamics 5-10mmHg . Chambers/Structures Left Atrium LA Volume: 82.81 ml LA Area: 20.76 cm^2 LA Vol. Index: 40 ml/m^2 Left Ventricle LVI Dd: 6.32 cm LVEDV:202.69 ml LV Septum Diastolic : 0.96 cm LV PW Diastolic: 0.82 cm LVEDV Chandler's:175.72 ml LV Length: 9.1 cm LVESV Chandler's:87.85 ml LVEF Chandler's: 50 % LVEDVI: 86 ml/m^2 LVESVI: 43 ml/m^2 LVOT Diameter: 2.38 cm Right Ventricle RVOT VTI: 20.98 cm Ao rta Ascending Aorta: 3.59 cm Pulmonary Vein: S Velocity: 0.86 m/s A R eversal Velocity: 0.26 m/s D Velocity: 0.64 m/s A Reversal Duration: 133. 2 msec Doppler/Quantitative Measurements Mitral Valve MV Peak E-Wave: 0.69 m/s MV Peak A-Wave: 0.63 m/s E/A Ratio: 1.1 Peak Gradient: 1.89 mmHg Deceleration Time: 396.5 msec MV Robert. Peak: Ti ssue Doppler E' Lateral Velocity: 0.08 m/s A' Lateral Velocity: 0.07 m/ s E/E': 8.75 Aortic Valve Peak Velocity: 1.41 m/s Mean Velocity: 0.96 m/s Peak Gradient: 7.92 mmHg Mean Gradient: 4.17 mmHg AV Area (continuity): 2.83 cm^2 AV VTI: 32. 26 cm AV DVI: 0.64 LVOT Peak Velocity: 0.89 m/s Peak Gradient: 3. 17 mmHg Mean Velocity: 0.61 m/s Mean Gradient: 1.69 mmHg LVOT Diamet er: 2.38 cm LVOT VTI: 20.51 cm LVOT Area: 4.45 cm^2 LVOT SV:91.2 ml LVOT CO: 4.56 l/min LVOT CI: 2.22 l/min/m^2 Tri cuspid Valve TR Velocity: 2.56 m/s TR Gradient: 26.27 mmHg [facility] Center[facility] [id number] 08:49:00* Test Item Value Reference Range Interpretation Comments Hemoglobin A1C (test code = 4548-4) 5.5 % 4.3-6.1 Lab Interpretation (test code = 44924-5) Normal [facility] CenterHEMOGLOBIN [id number] 08:49:00* Test Item Value Reference Range Interpretation Comments HEMOGLOBIN A1C (BEAKER) (test code = 368) 5.5 % 4.3-6.1 MR, BRAIN, WITHOUT [id number] 07:42:00FINAL REPORT MR, BRAIN, WITHOUT CONTRAST INDICATION: evaluate the hypodensity seen on CT head at OSH TECHNIQUE: Multiplanar, multisequence MR imaging of the brain without intravenous contrast. COMPARISON: September 17, 2016 FINDINGS:Note outside brain CT imaging is not available at the time of interpretation. There is no restricted diffusion. And area of T2 hyperintensity in the right mendoza radiata surrounding the insular ribbon and extending to the proximal mendoza radiata most likely represent sequela of prior infarct. No intracranial hemorrhage is present. There is no ventriculomegaly. Paranasal sinuses and mastoid air cells are clear. There is normal bone marrow signal intensity within the calvarium and skull base. IMPRESSION: No recent infarct or hemorrhage. Signal abnormality in the right insular region is favored to represent sequela of remote infarct. An addendum may be added when prior/outside imaging is available for comparison. Signed: JR Jones Robert MDReport Verified Date/Time: 04/01/2020 07:42:10 Reading Location: [address] Neuro Reading Room brain without IV [id number] 07:42:00Interface, External Ris In - 04/01/2020 7:44 AM CDTFINAL REPORT MR, BRAIN, WITHOUT CONTRAST INDICATION: evaluate the hypodensity seen on CT head at OSH TECHNIQUE: Multiplanar, multisequence MR imaging of the brain without intravenous contrast. COMPARISON: September 17, 2016 FINDINGS:Note outside brain CT imaging is not available at the time of interpretation. There is no restricted diffusion. And area of T2 hyperintensity in the right mendoza radiata surrounding the insular ribbon and extending to the proximal mendoza radiata most likely represent sequela of prior infarct. No intracranial hemorrhage is present. There is no ventriculomegaly. Paranasal sinuses and mastoid air cells are clear. There is normal bone marrow signal intensity within the calvarium and skull base. IMPRESSION: No recent infarct or hemorrhage. Signal abnormality in the right insular region is favored to represent sequela of remote infarct. An addendum may be added when prior/outside imaging is available for comparison. Signed: JR Jones Robert MDReport Verified Date/Time: 04/01/2020 07:42:10 Reading Location: [address] Neuro Reading Room [facility]Free T4 If Indicated 2020-04-01 07:16:00* Test Item Value Reference Range Interpretation Comments TSH (test code = 73124-9) 1.169 0.350- 4.940 uIU/mL JESSICA (test code = JESSICA) Scrap Baller ID - NTP Lab Interpretation (test code = 39550-5) Normal [facility] CenterVitamin B12 and [id number] 07:16:00* Test Item Value Reference Range Interpretation Comments Vitamin B12 (test code = 2132-9) 375 pg/mL 213-816 Folate (test code = 2284-8) 13.80 ng/mL >=7.00 JESSICA (test code = JESSICA) Scrap Baller ID - [facility] Lab Interpretation (test code = 31006-7) Normal [facility] CenterTSH/FREE T4 IF [id number] 07:16:00* Test Item Value Reference Range Interpretation Comments THYROID STIMULATING HORMONE (BEAKER) (test code = 772) 1.169 uIU /mL 0.350-4.940 Scrap Baller ID - [facility]VITAMIN B12 AND [id number] 07:16:00* Test Item Value Reference Range Interpretation Comments VITAMIN B12 (BEAKER) (test code = 774) 375 pg/mL 213-816 FOLATE (BEAKER) (test code = 362) 13.80 ng/mL >=7.00 Scrap Baller ID - [facility]ITLipid [id number] 07:06:00* Test Item Value Reference Range Interpretation Comments Triglycerides (test code = 2571-8) 105 mg/dL Specimen slightly hemolyzed Cholesterol (test code = 2093-3) 143 mg/dL Specimen slightly hemolyzed HDL (test code = 2085-9) 53 mg/dL LDL Calculated (test code = 52875-2) 69 mg/dL JESSICA (test code = JESSICA) Triglyceride Reference Range : Low Risk <150 Borderline 150-199 High Risk 200-499 Very High Risk >=500 Cholesterol Reference Range: Low Risk <200 Borderline 200-239 High Risk >240 HDL Cholesterol Reference Range: Low Risk >=60 High Risk <40 LDL Cholesterol Reference Range: Optimal <100 Near Optimal 100-129 Borderline 130-159 High 160-189 Very High >=190 Scrap Baller ID - NTP [facility] CenterLIPID [id number] 07:06:00* Test Item Value Reference Range Interpretation Comments TRIGLYCERIDES (BEAKER) (test code = 540) 105 mg/dL Specimen slightly hemolyzed CHOLESTEROL (BEAKER) (test code = 631) 143 mg/dL Specimen slightly hemolyzed HDL CHOLESTEROL (BEAKER) (test code = 976) 53 mg/dL LDL CHOLESTEROL CALCULATED (BEAKER) (test code = 633) 69 mg/dL Triglyceride Reference Range: Low Risk <150 Borderline 150-199 High Risk 200-499 Very High Risk >=500Cholesterol Reference Range: Low Risk <200 Borderline 200-239 High Risk >240HDL Cholesterol Reference Range: Low Risk >=60 High Risk <40LDL Cholesterol Reference Range: Optimal <100 Near Optimal 100-129 Borderline 130-159 High 160-189 Very High >=190 Scrap Baller ID - NTPC-Reactive [id number] 06:53:00* Test Item Value Reference Range Interpretation Comments CRP (test code = 676) 0.09 mg/dL 0-0.5 JESSICA (test code = JESSICA) Scrap Baller ID - NTP Lab Interpretation (test code = 61063-5) Normal [facility] CenterC-REACTIVE [id number] 06:53:00* Test Item Value Reference Range Interpretation Comments C-REACTIVE PROTEIN (BEAKER) (test code = 676) 0.09 mg/dL 0.00-0.5 0 Scrap Baller ID - NTPProthrombin time/[id number] 06:43:00* Test Item Value Reference Range Interpretation Comments Protime (test code = 5902-2) 15.0 11.9- 14.2 seconds H INR (test code = 6301-6) 1.2 <=5.9 JESSICA (test code = JESSICA) Effective 01/29/2019: PT Refe rence Range ChangeNew: 11.9- 14.2 Previous: 11.7-14.7 RECOMMENDED COUMADIN/WARFARIN INR THERAPY RANGESSTANDARD DOSE: 2.0-3.0 Includes: PROPHYLAXIS for venous thrombosis, sys temic embolization; TREATMENT for venous thrombosis and/or pulmonary embolus.HIGH RISK: Target INR is 2.5-3.5 for patients wiht mechanical heart valves. Lab Interpretation (test code = 54866-5) [facility][id number] 06:43:00* Test Item Value Reference Range Interpretation Comments PROTIME (BEAKER) (test code = 759) 15.0 seconds 11.9-14.2 H INR (BEAKER) (test code = 370) 1.2 <=5.9 Effective 01/29/2019: PT Reference Range ChangeNew: 11.9-14.2 Previous: 11.7-14. 7RECOMMENDED COUMADIN/WARFARIN INR THERAPY RANGESSTANDARD DOSE: 2.0-3.0 Include s: PROPHYLAXIS for venous thrombosis, systemic embolization; TREATMENT for venou s thrombosis and/or pulmonary embolus.HIGH RISK: Target INR is 2.5-3.5 for patie nts wiht mechanical heart valves.CHEST SINGLE (PORTABLE)2020-03-31 23:31:00 [place] [address] Patient Name: CARLY TSANG MR #: [id number] : 1950 Age/Sex: 69/M Req #: [id number] Adm Physician: Ordered by: MARTI CHENG MD Report #: [id number] Location: ER Room/Bed: Procedure: [id number] DX/ CHEST SINGLE (PORTABLE) Exam Date: 03/31/20 Exam Gulshan e: 2305 REPORT STATUS: Signed EX AMINATION: CHEST SINGLE (PORTABLE) INDICATION: Near syncope COMPARISON: Chest x-ray 06/12/2019 FINDINGS: TUBES and LINES : None. LUNGS: Normal lung volumes. Lungs are clear. No consolidations. PLEURA: No pleural effusion or pneumothorax. HEART AND MEDIASTINUM: Aortic calcifications. Mild cardiomegaly with left coronary stent. BONE S AND SOFT TISSUES: No acute osseous lesion. Soft tissues are unremarkable. Degenerative changes. UPPER ABDOMEN: No free air under the diaphragm. IMPRESSION: Mild cardiomegaly with left coronary stent. Signed by : Shaw Hoffmann DO on 03/31/2020 11:32 PM Dictated By: SHAW HOFFMANN DO 189 Transcribed By: ABY on 03/31/202331 COPY TO: MARTI CHENG MD CT BRAIN [id number] 23:26:00 [place] [id number] [place] [address] Patient Name: CARLY TSANG MR #: [id number] : 1950 Age/Sex: 69/M Req #: [id number] Adm Physician: Ordered by: MARTI CHENG MD Report #: [id number] Location: ER Room/Bed: Procedure: [id number] CT/ CT BRAIN WO Exam Date: 03/31/20 Exam Time: 2255 REPORT STATUS: Signed EXAMINATION: H ead CT HISTORY: Near syncope, trauma, hit the head, possible stroke COMP ARISON: None available TECHNIQUE: Helical axial images of the head were obtai ellen. Reformatted coronal and sagittal images from the axial data. Dose modula tion, iterative reconstruction, and/or weight based adjustment of the mA/kV wa s utilized to reduce the radiation dose to as low as reasonably achievable. Image quality: Motion/streaking artifact limits the evaluation of the skull ba se and posterior cranial fossa. FINDINGS: Parenchyma: 1. F ocal hypodensity in the right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 effusion, or pneumothorax . No suspicious mass lesion. Stable cardiomediastinal contour with tortuosi ty of the thoracic aorta. No acute osseous abnormality. Mild degenerative disc changes of the thoracic spine. Chronic mild anterior compression deformity of T12, unchanged. Multiple surgical clips project over the vertebral column on the lateral radiograph. IMPRESSION: No acute cardiopulmonary abnorm alities. Signed by: Dr. Ayah Garcia M.D. on 07/03/2018 12:50 PM Dictated By: AYAH GARCIA MD 1250 Transcribed By: ABY on 07/03/18 1250 COPY TO: MANISH WU MD CHEST 2 VIEWS [place] [address] Patient Name: CARLY TSANG MR #: [id number] : 1950 Age/Sex: 67/M Req #: [id number] Adm Physician: Ordered by: MANISH WU MD Report #: [id number] Location: US Room/Bed: Procedure: [id number] DX/CHEST 2 VIEWS Exam Date: 11/27/17 Exam Time: 0940 REPORT STATUS: Signed PROCEDURE: CHEST 2 VIEWS TECHNIQUE: PA and lateral chest INDICATION: Malignant neoplasm of the kidney COMPARISON: [facility], DX, CHEST 2 VIEWS, 07/23/2017, 14:30. FINDINGS: The lungs are clear and s lightly inflated. Normal heart size, mediastinal contour, and pulmonary vascu lature. Intact skeleton. CONCLUSION: Normal study. Dic tated by: Cricket Randall M.D. on 11/27/2017 at 10:39 Electronically approved by: Cricket Randall M.D. on 11/27/2017 at 10:39 D ictated By: CRICKET RANDALL MD 103 COPY TO: MANISH WU MD RENAL RETROPERITONEAL COMP [place] [address] Patient Name: CARLY TSANG MR #: [id number] : 1950 Age/Sex: 67/M Req #: [id number] Adm Physician: Ordered by: MANISH WU MD Report #: [id number] Location: US Room/Bed: Procedure: [id number] US/US RENAL RETROPERITONEAL C OMP Exam Date: Exam Time: REPORT STATUS: Sig ellen PROCEDURE: US RETROPERITONEAL ( KIDNEY ). COMPARISON: Patients [facility], US, US RETROPERITONEAL ( KIDNEY )., 01/24/2017, 14:22. Patients [facility], US, US RETROPERITONEAL ( KIDNEY )., 07/23/2017, 14:57. INDIC ATIONS: Malignant Neoplasm Of Unspecified Kidney TECHNIQUE: Grayscale and color Doppler ultrasound of kidneys FINDINGS: Right: 11.8 x 6.6 x 6. 2 cm. Cortical thickness 2.2 cm Left: 12.5 x 7.1 x 5.9 cm. Cortical thickness 1.8 cm Postoperative sequela of right partial nephrectomy. Stable complex parapelvic cyst measuring 1.5 x 1.3 x 1.3 cm. Normal echogenicity. 0.7 x 0.6 x 0.9 cm left anechoic exophytic cyst, new relative to July 2017. Survey views of the urinary bladder are normal. Patent ureters with norm al ureteral jets. Prostate volume: 25 mL (3.6 x 3 x 4.5 cm). CONCLUS ION: 1. Stable postoperative sequela of right partial nephrectomy. 2. Sta ble complex right parapelvic cyst. 3. Interval development of a small simple-a ppearing exophytic left renal cyst. Dictated by: Cricket Randall M.D. on 11/27/2017 at 11:05 Electronically approved by: Cricket neil M.D. on 11/27/2017 at 11:05 Dictated By: CRICKET RANDALL MD 110 Transcribed By: IN E on 11/27/17 1105 COPY TO: MANISH WU MD CHEST 2 VIEWS [place] [address] Patient Name: ACRLY TSANG MR #: [id number] : 1950 Age/Sex: 67/M Req #: [id number] Adm Physician: Ordered by: MANISH WU MD Report #: [id number] Location: US Room/Bed: Procedure: [id number] DX/CHEST 2 VIEWS Exam Date: 07/23/17 Exam Time: 1430 REPORT STATUS: Signed PROCEDURE: CHEST 2 VIEWS TECHNIQUE: PA and lateral chest INDICATION: Restaging renal cancer. Yearly followup. COMPARISON: [facility], DX, CHEST 2 VIEWS, 01/24/2017, 14:51. Patients [facility], DX, ABDOME N-1VIEW (KUB), 01/24/2017, 14:56. FINDINGS: Lungs are clear and symmet rically inflated. No pleural effusions. Normal heart size and mediastinal con tour. Intact skeleton. Mild degenerative disc disease throughout the thoracol umbar spine. Surgical clips in the right renal fossa CONCLUSION: No acute abnormality. Specifically, no evidence of metastasis. Dic tated by: Cricket Randall M.D. on 07/23/2017 at 14:54 Electronically approved by: Cricket Randall M.D. on 07/23/2017 at 14:54 Dictated By: CRICKET RANDALL MD 1456 Transcribed By: NIALL on 07/23/17 1454 COPY TO: LASHELL WU MD RENAL RETROPERITONEAL COMP [place] [address] Patient Name: CARLY TSANG MR #: [id number] : 1950 Age/Sex: 67/M Req #: [id number] Adm Physician: Ordered by: MANISH WU MD Report #: [id number] Location: US Room/Bed: Procedure: [id number] US/US RENAL RETROPERITONEAL C OMP Exam Date: Exam Time: REPORT STATUS: Sig ellen PROCEDURE: US RETROPERITONEAL ( KIDNEY ). COMPARISON: Patients [facility], US, US RETROPERITONEAL ( KIDNEY )., 01/24/2017, 14:22. INDICATIO NS: Malignant Neoplasm Of Kidney TECHNIQUE: Luna-scale and color sonographic images of the bilateral kidneys and bladder where obtained in transverse and longitudinal planes. FINDINGS: RIGHT KIDNEY: Measures 11.5 x 6.5 x 5.9 cm. Cortical thickness measured at 1.8 cm. Irregularity of the supe rior pole compatible with a partial nephrectomy. Cysts: Hypoechoic cystic l esion measuring 1.5 x 1.2 x 1.1 cm in the mid medial portion appears to be sm aller compared to the prior ultrasound. Solid masses: None Stones: None Hy dronephrosis: None Echogenicity: Normal LEFT KIDNEY: Measures 13.7 x 6.6 x 6.1 cm. Cortical thickness measured at 2.3 cm. Cysts: None Solid mass es: None Stones: None Hydronephrosis: None Echogenicity: Normal CONC LUSION: Status post surgical changes associated with a partial right nep hrectomy. Roque Montana D.O. Dictated by: Jayne Mo n 07/23/2017 at 16:12 Electronically approved by: Roque Montana D.O. on 07/23/2017 at 16:12 Dictated By: ROQUE MONTANA DO Electronic ally Signed By: ROQUE MONTANA DO on 07/23/171611 Transcribed By: NIALL on 07/05 COPY TO: MANISH WU MD KNEE RIGHT THREE VIEWS [place] [address] Patient Name: CARLY TSANG MR #: [id number] : 1950 Age/Sex: 66/M Req #: [id number] [facility] Physician: Ordered by: RAMO DUPONT MD Report #: [id number] Location: [facility] Room/Bed: Procedure: [id number] DX/KNEE RIGHT THREE EWS Exam Date: 05/11/17 Exam Time: 1035 REPORT STATUS: Signed PROCEDURE: KNEE RIGHT THREE VIEWS COMPARISON: None. INDICATIONS: RIGHT KNEE PAIN FINDINGS: No acute, displaced f racture or dislocation. Mild patellofemoral osteophytosis. Joint spaces are o therwise relatively well-maintained. Small suprapatellar joint effusion. Atherosclerotic vascular calcifications. Soft tissues otherwise unremarkabl e. CONCLUSION: Minimal patellofemoral degenerative joint disease w ith a small suprapatellar joint effusion. Dictated by: Ayah villalta n 05/11/2017 at 11:25 Electronically approved by: Ayah Garcia M.D. on 04/2017 at 11:25 Dictated By: AYAH GARCIA MD Electronically Sig ellen By: AYAH GARCIA MD on 05/11/17 1125 Transcribed By: NIALL on 05/11/17 112 5 COPY TO: RAMO DUPONT MD
--- OUTSIDE RECORDS SUMMARY | 2020-04-02 20:25 | XMS REPORT | Clinical Summary ---
Author Author DEANNA [facility] network disks [facility] [employer] [facility] Address Unknown Phone Unavailable Care Team Providers Care Pillar Worker Name Role Phone Sergei Ede PCP Allergies Comments Active Allergy Reactions Severity Noted Date HALLUCINATED IN ICU Morphine Other (See High 04/28/2016 Comments) Medications End Date Status Medication Sig Dispensed Refills Start Date Active LORazepam (ATIVAN) 1 MG Take 1 mg by 0 tablet mouth 2 (two) times daily as needed for Anxiety. Active nebivolol (BYSTOLIC) 5 MG Take 5 mg by 0 tablet mouth daily. Active aspirin 81 MG EC tablet Take 81 mg by 0 mouth daily. Active omeprazole (PRILOSEC) 40 Take 40 mg by 0 MG capsule mouth as needed. Active hydrochlorothiazide Take 12.5 mg 0 (MICROZIDE) 12.5 mg by mouth capsule daily. Active nitroglycerin (NITROSTAT) Place 0.4 mg 0 0.4 MG SL tablet under the tongue every 5 (five) minutes as needed for Chest pain Put 1 pill under tongue every 5min as needed for chest pain.No more than 3 doses in 15min.Call 911 if pain is unrelieved 5min after 1st dose . Active colesevelam (WELCHOL) 625 Take 1,875 mg 0 mg tablet by mouth 2 (two) times daily with breakfast and dinner. Active tamsulosin (FLOMAX) 0.4 Take 0.4 mg 0 mg Cp24 24 hr capsule by mouth daily. Active carisoprodol (SOMA) 350 Take 350 mg 0 MG tablet by mouth 3 (three) times daily as needed for Muscle spasms . Active rizatriptan (MAXALT) 10 Take 10 mg by 0 MG tablet mouth once as needed for Headaches Do NOT exceed thirty (30) mg in 24 hours. . Active butalbital-acetaminophen Take by mouth 0 50-300 mg Tab 3 (three) times daily as needed. Active ranolazine (RANEXA) 1,000 Take 1,000 mg 0 mg SR tablet by mouth 2 (two) times daily. Active atorvastatin (LIPITOR) 40 Take 40 mg by 0 MG tablet mouth daily. Active ticagrelor (BRILINTA) 90 Take by mouth 0 mg Tab tablet daily. Active ezetimibe (ZETIA) 10 mg Take 10 mg by 0 tablet mouth daily. Active amLODIPine (NORVASC) 5 MG Take 5 mg by 0 tablet mouth daily. Active cholecalciferol, vitamin Take 2,000 0 D3, 25 mcg (1,000 unit) Units by capsule mouth daily. 04/01/2020 Discontinued potassium chloride Take 10 mEq 0 (KLOR-CON) 10 MEQ CR by mouth 3 tablet (three) times daily. 04/01/2020 Discontinued fenofibric acid, choline, Take 135 mg 0 135 mg capsule by mouth daily. Active Problems Problem Noted Date Postural dizziness with presyncope 04/01/2020 Syncope 04/01/2020 Encounters Care Team Description Date Type Specialty Cindy Elkins MD Shiekh Sroujieh, Manuela Edwards MD Acute CVA (cerebrovascular accident) (HC C); Postural dizziness with presyncope 04/01/2020 Hospital General Internal Wy dicine Encounter 04/01/2020 Orders Only General Internal Wy dicine 04/01/2020 Travel after 03/31/2019 Social History Date Tobacco Use Types Packs/Day Years Used Former Smoker Smokeless Tobacco: Never Used Comments: CIGAR SMOKER (FORMER); RARE Alcohol Use Drinks/Week oz/Week Comments No Sex Assigned at Date Recorded Not on file Industry Job Start Date Occupation Not on file Not on file Not on file Travel End Travel History Travel Start No recent travel history available. Last Filed Vital Signs Time Taken Vital Sign Reading 04/01/2020 9:11 AM CDT Blood Pressure 147/76 04/01/2020 9:11 AM CDT Pulse 50 04/01/2020 9:00 AM CDT Temperature 36.1 C (97 F) 04/01/2020 12:42 PM CDT Respiratory Rate 16 04/01/2020 12:42 PM CDT Oxygen Saturation 98% - Inhaled Oxygen - Concentration 04/01/2020 4:35 AM CDT Weight 83 kg (183 lb) 04/01/2020 4:35 AM CDT Height 182.9 cm (6') 04/01/2020 4:35 AM CDT Body Mass Index 24.82 Plan of Treatment Not on file Procedures Comments Procedure Name Priority Date/Time Associated Diag nosis ECG 12-LEAD Routine 04/01/2020 10:41 AM CDT ECG 12-LEAD Routine 04/01/2020 10:41 AM CDT Procedure Note - Interface, External Ris In - 04/01/2020 10:40 AM CDT Ventricula r Rate 54 BPM Atrial Rate 54 BPM P-R Interval 210 ms QRS Duration 116 ms Q-T Interval 436 ms QTC Calculatio n(Bazett) 413 ms P [place] 65 degrees R [place] -13 degrees T [place] 21 degrees Sinus bradycardi a with 1st degree A-V block Left ventricula r hypertroph y with QRS widening Nonspecifi c T wave abnormalit y Abnormal ECG When compared with ECG of 7 11:10, ND interval has increased Criteria for Septal infarct are no longer Present Nonspecifi c T wave abnormalit y now evident in Lateral leads ECHO W CONTRAST & DOPPLER Routine 04/01/2020 7:49 AM CDT MR BRAIN WITHOUT IV Routine 04/01/2020 CONTRAST 7:22 AM CDT TROPONIN I STAT 04/01/2020 Add-on 5:59 AM CDT C-REACTIVE PROTEIN Routine 04/01/2020 5:59 AM CDT VITAMIN B12 AND FOLATE Routine 04/01/2020 5:59 AM CDT TSH/FREE T4 IF INDICATED Routine 04/01/2020 5:59 AM CDT PROTHROMBIN TIME/INR Routine 04/01/2020 5:50 AM CDT HEMOGLOBIN A1C Routine 04/01/2020 5:50 AM CDT LIPID PANEL Routine 04/01/2020 5:50 AM CDT after 03/31/2019 Results * ECG 12 lead (04/01/2020 10:41 AM CDT) Specimen Narrative Performed At Ventricular Rate 54 BPM GE MUSE Atrial Rate 54 BPM P-R Interval 210 ms QRS Duration 116 ms Q-T Interval 436 ms QTC Calculation(Bazett) 413 ms P [place] 65 degrees R [place] -13 degrees T [place] 21 degrees Sinus bradycardia with 1st degree A-V b lock Left ventricular hypertrophy with QRS w idening Nonspecific T wave abnormality Abnormal ECG When compared with ECG of 17-SEP-2016 1 1:10, ND interval has increased Criteria for Septal infarct are no long er Present Nonspecific T wave abnormality now evid ent in Lateral leads Confirmed by MD Sifuentes Mahboob ([id number]) o n 04/01/2020 5:43:09 PM Procedure Note Interface, External Ris In - 04/01/2020 5:43 PM CDT Ventricular Rate 54 BPM Atrial Rate 54 BPM P-R Interval 210 ms QRS Duration 116 ms Q-T Interval 436 ms QTC Calculation(Bazett) 413 ms P [place] 65 degrees R [place] -13 degrees T [place] 21 degrees Sinus bradycardia with 1st degree A-V block Left ventricular hypertrophy with QRS widening Nonspecific T wave abnormality Abnormal ECG When compared with ECG of 17-SEP-2016 11:10, ND interval has increased Criteria for Septal infarct are no longer Present Nonspecific T wave abnormality now evident in Lateral leads Confirmed by MD Sifuentes Mahboob ([id number]) on 04/01/2020 5:43:09 PM Performing Organization Address City/State/Zipcode Ph one Number GE MUSE * ECHO W CONTRAST & DOPPLER (04/01/2020 7:49 AM CDT) Ejection Fraction [facility] Specimen Narrative Performed At Transthoracic Echocardiography Report (TTE) [facility] ECH O [facility]ARTLAB Demographics [facility] Patient Name CARLY GONZALEZ Date of Study 04/01/2020 PASCUAL [id number] Gender Male Visit Number [id number] Unknown [id number] Room Number 2209 Number Date of Birth1950 Referring Physician Sohail Elkins MD Age69 year(s)[employer] Melissa Cardenas [facility] AnalystAljulieth calzada MD Physicia n Procedure Type of Study TTE procedure:2DECHO W/CO NTRAST & DOPPLER (Routine) Indications:Stroke work up. Clinical History Dizziness, Syncope, CAD s/p stent 2011, Cath 03/25/12, ICMP, HTN, HLD, Former smoker Contrast Medium: Bubble Study. Height: 72 inches Weight: 83.01 kg (183 lbs) BSA: 2.05 m^2 BMI: 24.82 kg/m^2 HR: 50 bpm BP: 160/88 mmHg Summary 1. The left ventricle is chamber size ( by vol index) is mildly enlarged. Normal LV wall thickness. The following segment(s) appear hypokinetic: mid to apical septum. Estimated LVEF by ute litative assessment is mildly reduced (45-49%). Grade 1 diastolic dys function (impaired relaxation) .Normal LV filling pressures Avg E/e' - 9. LA size is mildly enlarged. 2. Normal right ventricle structure and function. Normal right atrium. Estimated peak systolic PA pressure is 30-35 mmHg (normal range). 3. Mild tricuspid regurgitation. Mild m itral regurgitation. 4. IV saline contrast injection was neg ative for a PFO (patent foramen ovale) at rest and post Valsalva. Previous Study Compared to the previous study jin mane in 2011, the LVEF improved. Signature Findings Technical Quality: Good visualization Left Ventricle The left ventricle is chamber size (by vol index) is mildly enlarged (male - LVED 75-89ml/m2). Normal LV wall thickness. The following segment(s) appear hypokinetic: mid to apical septum . Global LV systolic function mildly reduced . Estimated LVEF by qualitative assessment is mildly reduced (45-49%) . Grade 1 diastolic dysfunction (impaired relaxation and low-normal LA pressure). Left AtriumLA s ize is mildly enlarged . Right VentricleNormal r ight ventricle structure and function. Right Atrium Normal right atrium. Atrial SeptumIV yonatan ine contrast injection was negative for a PFO (patent foramen ovale) at rest and post Valsalva . Aortic Valve Mild A oV cusp thickening. Mitral Valve Mild M V leaflet thickening. Mild mitral regurgitation. Tricuspid ValveMild tri cuspid regurgitation. Estimated peak systolic PA pressure is 30-35 mmHg (normal range) . Pulmonic Valve Normal P V structure and function by limited views and Doppler. Aorta Aortic root size (SInus of Valsalva diameter) is normal . PericardiumNo e vidence of pericardial effusion. IVC/SVC/PA/PV/PleuralThe estimated RA pressure by IVC dynamics 5-10mmHg . Chambers/Structures Left Atrium LA Volume: 82.81 ml LA Area: 20.76 cm^2 LA Vol. Index: 40 ml/m^2 Left Ventricle LVIDd: 6.32 cmLVEDV:202. 69 ml LV Septum Diastolic: 0.96 cm LV PW Diastolic: 0.82 cm LVEDV Chandler's:175.72 ml LV Length: 9.1 cm LVESV Chandler's:87.85 ml LVEF Chandler's: 50 % LVEDVI: 86 ml/m^2 LVESVI: 43 ml/m^2 LVOT Diameter: 2.38 cm Right Ventricle RVOT VTI: 20.98 cm Aorta Ascending Aorta: 3.59 cm Pulmonary Vein: S Velocity: 0.86 m/sA R eversal Velocity: 0.26 m/s D Velocity: 0.64 m/sA R eversal Duration: 133.2 msec Doppler/Quantitative Measurements Mitral Valve MV Peak E-Wave: 0.69 m/s MV Peak A-Wave: 0.63 m/s E/A Ratio: 1.1 Peak Gradient: 1.89 mmHg Deceleration Time: 396.5 msec MV Robert. Peak: Tissue Doppler E' Lateral Velocity: 0.08 m/s A' Lateral Velocity: 0.07 m/s E/E': 8.75 Aortic Valve Peak Velocity: 1.41 m/s Mean Velocity: 0.96 m/s Peak Gradient: 7.92 mmHg Mean Gradient: 4.17 mmHg AV Area (continuity): 2.83 cm^2 AV VTI: 32.26 cm AV DVI: 0.64 LVOT Peak Velocity: 0.89 m/s Peak Gradient: 3.17 mmHg Mean Velocity: 0.61 m/s Mean Gradient: 1.69 mmHg LVOT Diameter: 2.38 cm LVOT VTI: 20.51 cm LVOT Area: 4.45 cm^2 LVOT SV:91.2 ml LVOT CO: 4.56 l/min LVOT CI: 2.22 l/min/m^2 Tricuspid Valve TR Velocity: 2.56 m/s TR Gradient: 26.27 mmHg Procedure Note Interface, External Ris In - 04/01/2020 9:55 AM CDT Transthoracic Echocardiography Report (TTE) Demographics Patient Name CARLY GONZALEZ Date of Study 04/01/2020 PASCUAL Gender Male Visit Number [id number] Race Unknown Room Number 2209 Number Date of 1950 Referring Physician Sohail Elkins MD Age 69 year(s) [employer] Melissa Cardenas, [facility] Bingo Floater Javy Bedolla MD Physician Procedure Type of Study TTE procedure:2DECHO W/CONTRAST & DOPPLER (Routine) Indications:Stroke work up. Clinical History Dizziness, Syncope, CAD s/p stent , Cath 03/25/12, ICMP, HTN, HLD, Former smoker Contrast Medium: Bubble Study. Height: 72 inches Weight: 83.01 kg (183 lbs) BSA: 2.05 m^2 BMI: 24.82 kg/m^2 HR: 50 bpm BP: 160/88 mmHg Summary 1. [...] LVED 75-89ml/m2). Normal LV wall thickness. The following segment(s) appear hypokinetic: mid to apical septum . Global LV systolic function mildly reduced . Estimated LVEF by qualitative assessment is mildly reduced (45-49%) . Grade 1 diastolic dysfunction (impaired relaxation and low-normal LA pressure). Left Atrium LA size is mildly enlarged . Right Ventricle Normal right ventricle structure and function. Right Atrium Normal right atrium. Atrial Septum IV saline contrast injection was negative for a PFO (patent foramen ovale) at rest and post Valsalva . Aortic Valve Mild AoV cusp thickening. Mitral Valve Mild MV leaflet thickening. Mild mitral regurgitation. Tricuspid Valve Mild tricuspid regurgitation. Estimated peak systolic PA pressure is 30-35 mmHg (normal range) . Pulmonic Valve Normal PV structure and function by limited views and Doppler. Aorta Aortic root size (SInus of Valsalva diameter) is normal . Pericardium No evidence of pericardial effusion. IVC/SVC/PA/PV/Pleural The estimated RA pressure by IVC dynamics 5-10mmHg . Chambers/Structures Left Atrium LA Volume: 82.81 ml LA Area: 20.76 cm^2 LA Vol. Index: 40 ml/m^2 Left Ventricle LVIDd: 6.32 cm LVEDV:202.69 ml LV Septum Diastolic: 0.96 cm LV PW Diastolic: 0.82 cm LVEDV Chandler's:175.72 ml LV Length: 9.1 cm LVESV Chandler's:87.85 ml LVEF Chandler's: 50 % LVEDVI: 86 ml/m^2 LVESVI: 43 ml/m^2 LVOT Diameter: 2.38 cm Right Ventricle RVOT VTI: 20.98 cm Aorta Ascending Aorta: 3.59 cm Pulmonary Vein: S Velocity: 0.86 m/s A Reversal Velocity: 0.26 m/s D Velocity: 0.64 m/s A Reversal Duration: 133.2 msec Doppler/Quantitative Measurements Mitral Valve MV Peak E-Wave: 0.69 m/s MV Peak A-Wave: 0.63 m/s E/A Ratio: 1.1 Peak Gradient: 1.89 mmHg Deceleration Time: 396.5 msec MV Robert. Peak: Tissue Doppler E' Lateral Velocity: 0.08 m/s A' Lateral Velocity: 0.07 m/s E/E': 8.75 Aortic Valve Peak Velocity: 1.41 m/s Mean Velocity: 0.96 m/s Peak Gradient: 7.92 mmHg Mean Gradient: 4.17 mmHg AV Area (continuity): 2.83 cm^2 AV VTI: 32.26 cm AV DVI: 0.64 LVOT Peak Velocity: 0.89 m/s Peak Gradient: 3.17 mmHg Mean Velocity: 0.61 m/s Mean Gradient: 1.69 mmHg LVOT Diameter: 2.38 cm LVOT VTI: 20.51 cm LVOT Area: 4.45 cm^2 LVOT SV:91.2 ml LVOT CO: 4.56 l/min LVOT CI: 2.22 l/min/m^2 Tricuspid Valve TR Velocity: 2.56 m/s TR Gradient: 26.27 mmHg Performing Organization Address City/State/Zipcode Ph one Number [facility] ECHO [facility]ART[facility] * MR brain without IV contrast (04/01/2020 7:22 AM CDT) Specimen Narrative Performed At FINAL REPORT [employer] [facility] MR, BRAIN, WITHOUT CONTRAST INDICATION: evaluate the hypodensity se en on CT head at OSH TECHNIQUE: Multiplanar, multisequence M R imaging of the brain without intravenous contrast. COMPARISON: September 17, 2016 FINDINGS: Note outside brain CT imaging is not av ailable at the time of interpretation. There is no restricted diffusion.An d area of T2 hyperintensity in the right mendoza radiata surrounding th e insular ribbon and extending to the proximal mendoza radiata most lik sharri represent sequela of prior infarct. No intracranial hemorrhage is present. There is no ventriculomegaly. Paranasal sinuses and mastoid air cells are clear. There is normal bone marrow signal inte nsity within the calvarium and skull base. IMPRESSION: No recent infarct or hemorrhage. Signal abnormality in the right insular region is favored to represent sequela of remote infarct. An addendum may be added when prior/out side imaging is available for comparison. Signed: JR Jones Robert MD Report Verified Date/Time: 0 07:42:10 Reading Location: [address] Neuro Re ading Room Procedure Note Interface, External Ris In - 04/01/2020 7:44 AM CDT FINAL REPORT MR, BRAIN, WITHOUT CONTRAST INDICATION: evaluate the hypodensity seen on CT head at OSH TECHNIQUE: Multiplanar, multisequence MR imaging of the brain without intravenous contrast. COMPARISON: September 17, 2016 FINDINGS: Note outside brain CT imaging is not available [...] available for comparison. Signed: JR Jones Robert MD Report Verified Date/Time: 04/01/2020 07:42:10 Reading Location: [address] Neuro Reading Room Performing Organization Address City/State/Zipcode Ph one Number GE RIS * Vitamin B12 and Folate (04/01/2020 5:59 AM CDT) Vitamin B12 375 213 - 816 pg/mL [facility] Folate 13.80 >=7.00 ng/mL [facility] Specimen Blood Narrative Performed At Duct Installer ID - [facility] Performing Organization Address [facility] one Number [place] [phone] [place] [address] * TSH/Free T4 If Indicated (04/01/2020 5:59 AM CDT) TSH 1.169 0.350 - 4.940 uIU/mL [facility] Specimen Blood Narrative Performed At Duct Installer ID - [facility] Performing Organization Address [facility] one Number [place] [phone] [place] [address] * C-Reactive Protein (04/01/2020 5:59 AM CDT) CRP 0.09 0.00 - 0.50 mg/dL [facility] Specimen Blood Narrative Performed At Duct Installer ID - [facility] Performing Organization Address [facility] one Number [place] [phone] [address] [phone] [place] [address] * Troponin I (04/01/2020 5:59 AM CDT) Troponin I <0.01 0.00 - 0.03 ng/mL [facility] Specimen Blood Narrative Performed At Troponin I (TnI) levels must be interpreted in the co ntext of the presenting [facility] symptoms and the clinical findings. Elevated TnI leve ls indicate myocardial [facility] damage, but are not specific for ischem ic heart disease. Elevated TnI levels are seen in patients with other cardiac con ditions (including myocarditis and congestive heart failure), and slight T nI elevations occur in patients with other conditions, including sepsis, tristen al failure, acidosis, acute neurological disease, and persistent tachyarrhythmia . Duct Installer ID - [id number] Performing Organization Address [facility] one Number [address] [facility] * Prothrombin time/INR (04/01/2020 5:50 AM CDT) Protime 15.0 (H) 11.9 - 14.[address] [facility] INR 1.2 <=5.9 [facility] Specimen Blood Narrative Performed At Effective 01/29/2019: PT Reference Range Change [facility] New: 11.9-14.2Previous: 11.7-14.7 [facility] RECOMMENDED COUMADIN/WARFARIN INR THERA PY RANGES STANDARD DOSE: 2.0-3.0Includes: PRO PHYLAXIS for venous thrombosis, systemic embolization; TREATMENT for venous thro mbosis and/or pulmonary embolus. HIGH RISK: Target INR is 2.5-3.5 for pa tients wiht mechanical heart valves. Performing Organization Address [facility] one Number [place] [phone] [facility] * Hemoglobin A1c (04/01/2020 5:50 AM CDT) Hemoglobin A1C 5.5 4.3 - 6.1 % [facility] Specimen Blood Performing Organization Address [facility] one Number [address] [facility] * Lipid panel (04/01/2020 5:50 AM CDT) Triglycerides 105Comment: Specimen slightly mg/dL [facility] Cholesterol 143Comment: Specimen slightly mg/dL [facility] HDL 53 mg/dL [facility] LDL Calculated 69 mg/dL [facility] Specimen Blood Narrative Performed At Triglyceride Reference Range: [facility] Low Risk <150 [facility] [id number] High Risk 200-499 Very High Risk>=500 Cholesterol Reference Range: Low Risk <200 [id number] High Risk>240 HDL Cholesterol Reference Range: Low Risk >=60 High Risk <40 LDL Cholesterol Reference Range: Optimal<100 Near [id number] Very High >=190 Duct Installer ID - [id number] Performing Organization Address City/State/Zipcode Ph one Number [facility] [address] [place], [place] [address] [facility] after 03/31/2019 Insurance Payer Benefit Subscriber ID Type Phone Address Plan / Group MEDICARE MEDICARE A xxxxxxxxxxx Medicare B [employer] BCBS OS xxxxxxxxx PPO [address] POS/PPO/[place] [address] O [employer] BCBS FED xxxxxxxxx PPO [address] [place] [phone] Advance Directives For more information, please contact: [place] [phone] [place], [place] [phone] Date Inactivated Comments Code Status Date Activated 04/01/2020 4:35 PM Full Code 04/01/2020 5:04 AM This code status was determined by: Patient
== END 2020-04-01 03:35 | disposition other institution (70) ==
LOC: ER 22:16
DX: I63.89 Other cerebral infarction (principal); R55 Syncope and collapse; R42 Dizziness and giddiness; S00.83XA Contusion of other part of head, initial encounter; W18.30XA Fall on same level, unspecified, initial encounter; Y92.008 Other place in unspecified non-institutional (private) residence as the place of occurrence of the external cause; M54.2 Cervicalgia; I10 Essential (primary) hypertension; E78.5 Hyperlipidemia, unspecified; Z85.528 Personal history of other malignant neoplasm of kidney; Z95.5 Presence of coronary angioplasty implant and graft; M54.9 Dorsalgia, unspecified; G89.29 Other chronic pain
CPT/HCPCS: 36415; 70450; 71045; 72125; 80053; 81001; 82550; 82553; 84484; 85025; 85610; 85730; 93005; 99284

== ENCOUNTER → 2020-04-14 | Outpatient (CLI) | payer MEDICARE, BC ==
--- NOTE | 2020-04-14 11:46 | Diagnostic Imaging Report ---
EXAMINATION: CHEST 2 VIEWS, ABDOMEN-1VIEW (KUB) INDICATION: Renal malignancy COMPARISON: Chest radiograph 03/31/2020, renal ultrasound 06/12/2019 FINDINGS: LINES/TUBES:None LUNGS:The lungs are well-inflated. No focal consolidation or pulmonary edema. Mild biapical pleural parenchymal thickening/scarring. No radiographically apparent pulmonary nodule. PLEURA:No pleural effusion or pneumothorax. MEDIASTINUM:The cardiomediastinal silhouette appears normal in size and shape. BONES/SOFT TISSUES:No acute osseous injury. Unchanged loss of anterior vertebral body height at T12. ABDOMEN:Nonobstructive bowel gas pattern. No free air. No radiographically apparent urinary calculi. Surgical clips in the right upper abdomen. Phleboliths in the pelvis. No acute osseous injury. IMPRESSION: No focal pneumonia or pulmonary edema. No radiographically apparent pulmonary nodule. No radiographically apparent urinary calculi. Nonobstructive bowel gas pattern. No free air. Signed by: Maddy Pearson MD on 04/14/2020 11:43 AM
--- NOTE | 2020-04-14 12:04 | Diagnostic Imaging Report ---
EXAM: Renal Ultrasound INDICATION: ^[id number] ^[id number] ^MALIGANT NEOPLASM OF RIGHT KIDNEY COMPARISON: Chest radiograph of the same day, renal ultrasound of 06/12/2019 TECHNIQUE: Transverse and longitudinal images of the kidneys and bladder were obtained. FINDINGS: Right Kidney: Length: 11.5 cm Appearance: Normal echogenicity. Collecting system: No hydronephrosis Stones: None Cyst/Mass: None Left Kidney: Length: 13.6 cm Appearance: Normal echogenicity. Collecting system: No hydronephrosis Stones: None Cyst/Mass: Lateral midpole simple cysts measure up to 1.2 cm. Bladder: No mass or calculi. Bilateral ureteral jets visualized. Prevoid volume estimate of 236 cc. The prostate measures 3.2 x 3.2 x 4.1 cm (volume estimate 22 cc). IMPRESSION: No hydronephrosis or renal calculi. Stable left renal simple cyst. Signed by: Maddy Pearson MD on 04/14/2020 12:01 PM
== END ==
LOC: US 10:46
PROVIDERS: ATTEND Urology
DX: C64.1 Malignant neoplasm of right kidney, except renal pelvis (principal); N20.0 Calculus of kidney
CPT/HCPCS: 71046; 74018; 76770

== ENCOUNTER → 2020-11-17 | Outpatient (CLI) | payer MEDICARE, BC | LOC: US 08:37 | PROVIDERS: ATTEND Urology | DX: C64.1 Malignant neoplasm of right kidney, except renal pelvis (principal) | CPT/HCPCS: 71046; 76770 ==

== ENCOUNTER → 2021-04-15 | Outpatient (CLI) | payer MEDICARE, BC | LOC: US 08:28 | PROVIDERS: ATTEND Urology | DX: C64.1 Malignant neoplasm of right kidney, except renal pelvis (principal); N28.1 Cyst of kidney, acquired | CPT/HCPCS: 71046; 76770 ==

== ENCOUNTER → 2021-11-09 | Outpatient (CLI) | payer MEDICARE, BC | LOC: US 08:39 | PROVIDERS: ATTEND Urology | DX: C64.1 Malignant neoplasm of right kidney, except renal pelvis (principal) | CPT/HCPCS: 71046; 76770 ==

== ENCOUNTER 2022-09-28 10:24 | Outpatient (RCR) | payer MEDICARE, BC | END 2022-10-03 | LOC: PT 10:24 | PROVIDERS: ATTEND Psychiatry & Neurology Clinical Neurophysiology | DX: M54.2 Cervicalgia (principal); M54.9 Dorsalgia, unspecified ==

== ENCOUNTER → 2022-10-06 | Outpatient (CLI) | payer MEDICARE, BC | LOC: RAD 10:27 | PROVIDERS: ATTEND Urology | DX: N20.0 Calculus of kidney (principal) | CPT/HCPCS: 74018 ==

== ENCOUNTER → 2022-10-31 | Outpatient (RCR) | payer MEDICARE, BC | LOC: PT 10-04 09:07 | PROVIDERS: ATTEND Psychiatry & Neurology Clinical Neurophysiology | DX: M54.2 Cervicalgia (principal); M54.9 Dorsalgia, unspecified ==

== ENCOUNTER 2022-11-16 09:58 | Outpatient (RCR) | payer MEDICARE, BC | END 2022-12-01 | LOC: PT 09:58 | PROVIDERS: ATTEND Psychiatry & Neurology Clinical Neurophysiology | DX: M47.816 Spondylosis without myelopathy or radiculopathy, lumbar region (principal); M54.50 Low back pain, unspecified; M62.81 Muscle weakness (generalized) ==

== ENCOUNTER → 2024-04-03 | Outpatient (REF) | payer MEDICARE, BC | LOC: RAD 12:10 | PROVIDERS: ATTEND Urology | DX: N20.0 Calculus of kidney (principal) | CPT/HCPCS: 74018 ==

== ENCOUNTER → 2025-01-19 | Outpatient (REF) | payer MEDICARE, BC | LOC: RAD 15:47 | PROVIDERS: ATTEND Urology | DX: N20.0 Calculus of kidney (principal) | CPT/HCPCS: 74018 ==